=== PATIENT | female | born 1950 | race Caucasian/White ===

== ENCOUNTER 2020-03-14 10:30 | Outpatient (REF) | payer MEDICARE, SELFPAY ==
--- NOTE | 2020-03-14 | MM_ITS ---
EXAMINATION: MM SCREENING DIGITAL BREAST TOMOSYNTHESIS, BILATERAL CLINICAL INFORMATION: Screening. Asymptomatic. The lifetime risk of breast cancer based on the Tyrer-Cuzick Model is 3.7%. COMPARISON: Mammography: March 12, 2019 and studies dating back to August 22, 2014 TECHNIQUE: Digital breast tomosynthesis is performed in both the craniocaudal and mediolateral oblique views along with computer-aided detection (CAD). Synthesized 2D images are generated from the tomosynthesis. FINDINGS: The breasts are almost entirely fatty (ACR BI-RADS breast composition Category a). There are no significant masses, abnormal calcifications, or other abnormalities. Right-sided ventriculoperitoneal shunt evident. MM/MM tomosynthesis screening BI IMPRESSION: There are no significant changes from prior study. ASSESSMENT: BI-RADS 1: Negative RECOMMENDATION: Routine annual mammography screening. This patient's information was entered into a reminder system with a target due date for their next mammogram.
== END 2020-03-14 10:31 | disposition home or self-care (01) ==
LOC: HO.MAMMO 10:30
PROVIDERS: PCP Family Medicine; Visit Provider Family Medicine
DX: Z12.31 Encounter for screening mammogram for malignant neoplasm of breast (principal)
CPT/HCPCS: 77063; 77067

== ENCOUNTER 2020-04-11 07:49 | Outpatient (REF) | payer MEDICARE, SELFPAY ==
[2020-04-11 10:44] LABS: Estimated Average Glucose 108 mg/dL; Hemoglobin A1c % 5.4 %
[2020-04-11 11:23] LABS: Alanine Aminotransferase 25 U/L (0-31); Anion Gap 14 (12-20); Blood Urea Nitrogen 15 mg/dL (9-16); Carbon Dioxide 29 mmol/L (22-29); Chloride 107 mmol/L (96-108); Cholesterol 129 mg/dL; Estimated Glomerular Filt Rate > 60; Glucose Fasting 116 mg/dL (60-99); HDL Cholesterol 42 mg/dL; LDL Cholesterol Calculated 62 mg/dl; Sodium 145 mmol/L (135-145); Triglycerides 125 mg/dL
== END 2020-04-11 07:50 | disposition home or self-care (01) ==
LOC: HO.10HDL 07:49
PROVIDERS: Visit Provider Family Medicine
DX: R73.9 Hyperglycemia, unspecified (principal); I10 Essential (primary) hypertension; E78.00 Pure hypercholesterolemia, unspecified
CPT/HCPCS: 80051; 80061; 82550; 82565; 82947; 83036; 84460; 84520

== ENCOUNTER 2020-12-17 07:51 | Outpatient (REF) | payer MEDICARE, SELFPAY ==
[2020-12-17 11:15] LABS: Alanine Aminotransferase 31 U/L (0-31); Anion Gap 13 (12-20); Blood Urea Nitrogen 8 mg/dL (9-16); Carbon Dioxide 26 mmol/L (22-29); Chloride 109 mmol/L (96-108); Estimated Glomerular Filt Rate > 60; Potassium 4.6 mmol/L (3.3-5.1); Sodium 143 mmol/L (135-145)
== END 2020-12-17 07:52 | disposition home or self-care (01) ==
LOC: HO.10HDL 07:51
PROVIDERS: PCP Family Medicine; Visit Provider Family Medicine
DX: I10 Essential (primary) hypertension (principal); E78.00 Pure hypercholesterolemia, unspecified; Z79.899 Other long term (current) drug therapy
CPT/HCPCS: 36415; 80051; 82550; 82565; 84460; 84520

== ENCOUNTER 2021-04-19 07:44 | Outpatient (REF) | payer MEDICARE, SELFPAY ==
--- NOTE | ~2021-04-19 | MM_ITS ---
EXAMINATION: MM SCREENING DIGITAL BREAST TOMOSYNTHESIS, BILATERAL CLINICAL INFORMATION: Screening. Asymptomatic. The lifetime risk of breast cancer based on the Tyrer-Cuzick Model is 4%. COMPARISON: Mammography: 03/14/2020, 03/12/2019, 02/16/2018 TECHNIQUE: Digital breast tomosynthesis is performed in both the craniocaudal and mediolateral oblique views along with computer-aided detection (CAD). Synthesized 2D images are generated from the tomosynthesis. FINDINGS: There are scattered areas of fibroglandular density (ACR BI-RADS breast composition Category b). There are no significant masses, abnormal calcifications, or other abnormalities. Ventriculoperitoneal shunt tubing is again noted overlying the posterior medial right breast. MM/MM tomosynthesis screening BI IMPRESSION: No mammographic evidence of malignancy. ASSESSMENT: BI-RADS 2: Benign RECOMMENDATION: Routine annual mammography screening. This patient's information was entered into a reminder system with a target due date for their next mammogram.
== END 2021-04-19 07:45 | disposition home or self-care (01) ==
LOC: HO.MAMMO 07:44
PROVIDERS: Visit Provider Family Medicine
DX: Z12.31 Encounter for screening mammogram for malignant neoplasm of breast (principal)
CPT/HCPCS: 77063; 77067

== ENCOUNTER 2021-06-11 11:19 | Outpatient (REF) | payer MEDICARE, SELFPAY ==
--- NOTE | ~2021-06-11 | XR_ITS ---
EXAMINATION: XR HIP, RIGHT CLINICAL INFORMATION: Pain COMPARISON: None TECHNIQUE: AP view the pelvis and 2 views of the right hip. FINDINGS: No acute fracture or dislocation. Pelvic ring intact. Mild bilateral sacroiliac arthrosis. Moderate right and mild left hip joint space narrowing. There are bilateral acetabular femoral collar marginal osteophytes, associated with slight lateral uncovering of the right femoral head. Femoral heads remain spherical. Soft tissues unremarkable. XR/XR hip RT w PEL1V IMPRESSION: No acute findings. Moderate right and mild left hip arthrosis as described.
== END 2021-06-11 11:20 | disposition home or self-care (01) ==
LOC: HO.HMGCX 11:19
PROVIDERS: Visit Provider Internal Medicine
DX: G89.29 Other chronic pain (principal); M25.551 Pain in right hip
CPT/HCPCS: 73502

== ENCOUNTER 2021-07-26 09:00 | Outpatient (RCR) | payer MEDICARE, SELFPAY ==
--- NOTE | 2021-07-10 09:54 | MHC.PT.EP ---
[facility] [place] Office [place] Office [place] Office [address] [place] [address] [phone] F: [phone] F: [phone] F: [phone] F: [phone] Physical Therapy Plan of Care Date of Evaluation: Date of Surgery: Diagnosis: This is a 70 yo female presenting to skilled PT with a script for chronic pain in R groin. Assessment: This is a 70 yo female presenting to skilled PT with a script for chronic pain in R groin. Patient is here today complaining of pain in her right hip joint that started in the summer (when she felt a pull). This improved some until when she was standing and had an increased pulling incident that was sharp in nature. She now reports ongoing pain that is lingering since then. She has noticed a locking sensation with getting out of car and pain increases throughout the day. The patient reports that pain starts in the R hip (ASIS), radiates to right inguinal area but can radiate down the anterior aspect of the leg to the marc at times as well. Pain is described as pulling and sharp in the groin and just hurts in the leg (this is getting better however). Pain is worse with ambulation, climbing stairs and standing. She has tried taking [id number] NSAIDs, Tylenol, massaging area with [id number] arthritis cream and the heating pad. No referral to the ortho has been made just yet. 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 She is currently ambulating with a straight cane for safety but was on a walker. Able to walk without the cane but prefers not to. Assessment reveals pain that ranges up to a 10/10. She demos decreased/poor ROM, decreased hip and core strength, impaired gait pattern with need for AD, impaired joint mobility in knees and hips as well as gross functional decline with standing, walking and stairs. She is a good candidate for skilled PT 2x/wk for 5wks. Frequency and Duration: The patient will be seen 2x/wk for 5wks Short Term Goals: I in HEP Perform reciprocal gait on stairs with AD and single rail Demo proper squatting techniques without cues or increase in pain Custodial Goals: Demos functional ROM and strength Improve LEFs by at least 10 points Improve pain at the worst to no more than 2/10 Demo proper lifting techniques without increase in pain or radiating symptoms Treatment Plan: Modalities to reduce pain, spasms and effusion. Manual therapy to restore motion and function. Therapeutic exercise to improve strength and flexibility. Neuromuscular re-education for posture and balance. Therapeutic activities to return to functional activities of daily living. Electronically signed by: Daysi Hernandez PT Please sign and return to therapist. Thank you for your referral.
--- NOTE | 2021-08-02 08:44 | MHC.PT.PR ---
[facility] [place] Office [place] Office [place] Office [address] [place] [address] [phone] F: [phone] F: [phone] F: [phone] F: [phone] Physical Therapy Progress Note Diagnosis: This is a 70 yo female presenting to skilled PT with a script for chronic pain in R groin. Date of Surgery: Date of Evaluation: 07/10/21 Treatments to Date: 5 Cancellations to Date: 0 No Shows to Date: 0 Subjective: Myra called the office and cancelled the last 2 visits, her leg symptoms are making it hard for her to take more than a few steps. Pain Score and Location: 6-02/17 R ASIS, R groin Objective Measures: Please see eval Assessment: Myra's gait pattern is about the same, she continues to ambulate with her straight cane in front of her. She wants to get better but has been demonstrating little improvements with conservative PT at this time (she is very compliant in her HEP at home and is motivated to get better however pain is not improving). At this point in her therapy process I believe she may need a referral back to her PCP to assess her symptoms and refer out to an orthopedic surgeon for assessment and/or further imaging. Patient is in agreement. Patient to hold therapy for now, I will keep her chart open for 30 days from last tx session. PT Plan: Hold PT Frequency and Duration: The patient will be seen 2x/wk for 5wks Treatment Plan: Therapeutic Exercise Dynamic Therapeutic Activities Neuromuscular Re-ed Manual Therapies Taping Home Exercise Program Patient Education Hot or Cold Pack Reviewed/ Agreed with Student Documentation: Therapist: Thank you once again for your referral.
--- NOTE | 2021-08-23 10:15 | MHC.PT.DC ---
[facility] [place] Office [place] Office [place] Office [address] [place] 140 [facility] [phone] F: [phone] F: [phone] F: [phone] F: [phone] Physical Therapy Discharge Report Diagnosis: This is a 70 yo female presenting to skilled PT with a script for chronic pain in R groin. Date of Surgery: Date of Evaluation: 07/10/21 Date of Discharge: 08/23/21 Treatments to Date: 5 Cancellations to Date: 0 No Shows to Date: 0 Discharge Status: Recommend MD Follow-up Discharge Summary: At the last tx session, deon's gait pattern is about the same, she continues to ambulate with her straight cane in front of her as well. She wants to get better but has been demonstrating little improvements with conservative PT at this time (she is very compliant in her HEP at home and is motivated to get better however pain is not improving). At this point in her therapy process I believe she may need a referral back to her PCP to assess her symptoms and refer out to an orthopedic surgeon for assessment and/or further imaging (per most recent ortho note she will be undergoing surgery). Patient was in agreement with PT POC. I did keep her chart open for 30 days prior to DC. Electronically signed by: Daysi Hernandez PT Please sign and return to therapist. Thank you for your referral.
== END 2021-08-23 10:16 | disposition home or self-care (01) ==
LOC: HO.PTCHIC 09:00
PROVIDERS: PCP Internal Medicine; Visit Provider Internal Medicine
DX: R10.31 Right lower quadrant pain (principal); G89.29 Other chronic pain
CPT/HCPCS: 97110; 97140; 97162

== ENCOUNTER 2021-08-15 06:48 | Outpatient (REF) | payer MEDICARE, SELFPAY ==
--- NOTE | ~2021-08-15 | XR_ITS ---
EXAMINATION: XR HIP, RIGHT CLINICAL INFORMATION: Pain right hip COMPARISON: Radiographs right hip 06/11/2021 TECHNIQUE: Two views of the right hip. FINDINGS: No fracture, dislocation, destructive process. There are again moderate osteoarthritic changes right hip with superior hip joint narrowing and osteophytes and subchondral cyst superior acetabulum, 0.9 cm. There is no erosive change. Small spur present caudal aspect greater trochanter. The right SI joint is unremarkable. Pubic shows no diastases. XR/XR hip RT min 2V IMPRESSION: Osteoarthritis right hip.
== END 2021-08-15 06:49 | disposition home or self-care (01) ==
LOC: HO.HOSX 06:48
PROVIDERS: Visit Provider Physician Assistant
DX: M16.0 Bilateral primary osteoarthritis of hip (principal)
CPT/HCPCS: 73502; 99202

== ENCOUNTER → 2021-10-02 09:53 | Outpatient (BNVA) | payer MEDICARE, SELFPAY | PROVIDERS: PCP Internal Medicine; Visit Provider Orthopaedic Surgery | DX: Z13.89 Encounter for screening for other disorder (principal) ==

== ENCOUNTER → 2021-10-24 14:33 | Outpatient (REF) | payer MEDICARE, SELFPAY ==
--- NOTE | 2021-10-24 14:37 | CA_ITS ---
Transthoracic Echocardiogram Patient (Last, First, Middle): Myra Sandoval M Gender: Female Date of : 1950 Age: 70 Procedure Date: 10/24/2021 Procedure Type: Transthoracic Echocardiogram Location: OP Height: 167.64 cm Weight: 102.97 kg BSA: 2.11 m2 Heart Rate: bpm BP: 120 / 70 mmHg Resource Center Teacher: YR/TO Referring MD: Bi Ferrera MD Adobe Ball Mixer: Sony Ariza MD Symptoms: I42.9 CARDIOMYOPATHY Study Quality: Fair ECG Rhythm: Sinus Conclusions: - 1. Normal LV systolic function and diastolic filling pattern 2. Normal cardiac valvular Dopplers 3. Normal RV systolic pressure 4. No gross pericardial effusion Findings Left Ventricle Normal left ventricular size, thickness, and systolic function. The visually estimated ejection fraction is between 55-60%. Spectral Doppler is indicative of a normal filling pattern. Right Ventricle Normal right ventricular cavity size and systolic function. Atria The left atrium is normal in size. There is lipomatous hypertrophy of the interatrial septum. Interatrial shunt cannot be excluded. The right atrium is normal in size. Aortic Valve The aortic valve was not well visualized. There is no aortic valve stenosis. There is no aortic valve regurgitation. Mitral Valve There is moderate anterior and mild posterior mitral leaflet thickening. There is trace mitral valve regurgitation. There is no mitral valve stenosis. Pulmonic Valve The pulmonic valve was not well visualized. Tricuspid Valve Likely normal tricuspid valve structure and function. There is trace tricuspid valve regurgitation. The right ventricular systolic pressure is normal. The right ventricular systolic pressure is 28 mmHg. Normal right atrial pressure. There is no evidence of pulmonary hypertension. Great Vessels All visible segments of the aorta are normal in size. The pulmonary artery was not well visualized. Venous The inferior vena cava is normal in size and collapses greater than 50% with inspiration. Pericardium/Pleural There is no evidence of pericardial effusion. Prior Study Comparison No prior study available for comparison. Measurements 2D Linear Measurements IVSd: 1.12 0.6-0.9/0.6-1.0 cm LVIDd: 4.39 3.9-5.3/4.2-5.9 cm LVIDd Index: 2.08 2.4-3.2/2.2-3.1 cm/m2 LVIDs: 3.11 2.0-3.6 cm LVPWd: 1.14 0.7-1.1 cm LA Diam: 3.70 2.7-3.8/3.0-4.0 cm LAIDs Index: 1.75 1.5-2.3 cm/m2 LV Mass: 217.85 67-162/88-224 g LV Mass Index: 103.25 43-95/49-115 g/m2 LVOT Diam: 2.20 3.0+(-)1.3 cm 2D Systolic Function EF 4C: 53.00 >55% EF 2C: 60.30 >55% EF BiP: 56.00 >55% Mitral Valve MV VTI: 0.32 MV Pk Parmjit: 1.15 MV Mn Parmjit: 0.66 MV Pk Grad: 5.00 MV Mn Grad: 2.00 MV Pk E: 0.80 MV PK A: 0.72 MV Decel Time: 250.00 E/A: 1.10 E'Lateral: 5.87 E'Medial: 6.85 E/E' Med: 11.60 E/E' Lat: 13.60 PHT: 73.00 MVA PHT: 3.01 MVA Continuity: 2.38 Decel [place]: 3.19 Aortic Valve AoV Pk Parmjit: 1.25 AoV Mn Parmjit: 0.86 AoV VTI: 0.25 AoV Pk Grad: 6.00 Aov Mn Grad: 3.00 LILY Cont.VTI: 3.11 LVOT LVOT Pk Parmjit: 0.88 LVOT Mn Parmjit: 0.62 LVOT VTI: 0.20 LVOT Pk Grad: 3.00 LVOT Mn Grad: 2.00 LVOT Diam: 2.20 LVOT Area: 3.80 Diastolic Function MV Pk E: 0.80 MV Pk A: 0.72 E/A: 1.10 E'Medial: 6.85 E/E' Med: 11.60 E' Laterial: 5.87 E/E' Lat: 13.60 Right Ventricle TAPSE (mm): 18.70 TVS' Parmjit: 16.40 Tricuspid Valve TR Pk Parmjit: 2.50 TR Pk Grad: 25.00 RA Press: 3.00 RVSP: 28.00 Great Vessels Aorta Sinus of Valsalva: 3.18 2.0-3.[address] [place]: 2.81 1.7-3.4 cm Ao Asc: 3.50 2.1-3.4 cm Ao Arch: 2.70 Updated in Other Vendor System with Status of Final Sony Ariza MD electronically signed on 10/25/2021 8:57:42 AM with status of Final
== END ==
LOC: HO.CARD 14:33
PROVIDERS: PCP Internal Medicine; Visit Provider Internal Medicine Cardiovascular Disease
DX: I42.9 Cardiomyopathy, unspecified (principal)
CPT/HCPCS: 93306

== ENCOUNTER 2021-11-05 11:46 | Inpatient (IN) | payer MEDICARE, SELFPAY ==
[2021-10-23 12:10] VITALS: BP 130/63; PULSE 70; RESP 16; O2SAT 96; BMI 36.6
[2021-10-23 13:10] LABS: MANUAL DIFF FLAG NO
[2021-10-23 13:53] LABS: Basophils Percent Auto 0.6 % (0-2); Eosinophils Absolute Auto 0.1 X10*3/uL (0.0-0.4); Eosinophils Percent Auto 1.8 % (0-4); Hematocrit 38.9 % (37.0-47.0); Hemoglobin 12.5 g/dl (12.0-16.0); Imm Gran Abs Auto 0.02 X10*3/uL (0.00-0.03); Imm Gran Pct Auto 0.3 % (0.0-0.4); Lymphocytes Absolute Auto 2.1 X10*3/uL (1.2-4.9); Lymphocytes Percent Auto 29.2 % (20-40); Mean Corpuscular HGB Conc 32.1 g/dl (31.0-35.0); Mean Corpuscular Hemoglobin 29.6 pg (27.0-33.0); Mean Corpuscular Volume 92.2 fL (80.0-98.0); Mean Platelet Volume 11.4 fL (9.4-12.3); Monocytes Absolute Auto 0.6 X10*3/uL (0.1-1.2); Monocytes Percent Auto 8.9 % (2-11); Neutrophils Absolute Auto 4.2 x10*3/uL (2.0-8.3); Neutrophils Percent Auto 59.2 % (45-73); Platelet Count 174 X10*3/uL (160-400); Red Blood Count 4.22 X10*6/uL (4.20-5.50); Red Cell Distribution Width 12.4 % (11.0-16.0); White Blood Count 7.1 X10*3/uL (4.8-10.8)
[2021-10-23 14:07] LABS: MRSA Nasal PCR NEGATIVE (Negative); SA Nasal PCR NEGATIVE (Negative)
[2021-10-23 14:21] LABS: Anion Gap 12 (12-20); Blood Urea Nitrogen 14 mg/dL (9-16); Calcium 9.3 mg/dL (8.4-10.2); Carbon Dioxide 27 mmol/L (22-29); Chloride 107 mmol/L (96-108); Creatinine Clr Calc Pharmacy 70.1; Estimated Glomerular Filt Rate 60; Glucose Random 98 mg/dL (60-115); Potassium 4.6 mmol/L (3.3-5.1); Sodium 141 mmol/L (135-145)
--- NOTE | 2021-11-04 13:16 | P.CONAN_ITS ---
Documented by User: Ethel Mcaculey NP 11/04/21 13:19 HPI - Anesthesia Eval Consult details Narrative: 70yo F for Right Hip Total Replacement Cardiac cleared Seen in PAT by Dr Patrick GALLAGHER Active Problems Active Problems: All Active Problems (Updated 10/29/21 @ 13:19 by Katelyn Yap MD) MARIA DE JESUS on CPAP (Acute) Hx of non-ST elevation myocardial infarction (NSTEMI) (Acute) Chronic pain of right groin (Acute) Essential hypertension (Acute) Dyslipidemia (Acute) Osteoarthritis, hip, bilateral (Acute) Past Medical History Medical History (Updated 11/05/21 @ 15:00 by Katelyn Yap MD) Dyslipidemia Essential hypertension History of CVA (cerebrovascular accident) Hx of non-ST elevation myocardial infarction (NSTEMI) Hx of transient ischemic attack (TIA) MARIA DE JESUS on CPAP Osteoarthritis, hip, bilateral Stress-induced cardiomyopathy Vestibular schwannoma Family History Family History Father Substance use disorder Son Substance use disorder Paternal Aunt Mental health disorder Surgical History Surgical History Hx of bilateral cataract extraction Hx of breast surgery Hx of cardiac catheterization Hx of colonoscopy Hx of ovarian cystectomy S/P LASIK surgery 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 If so, by whom?: No Spiritual Healthcare Practices: no Jehovah'S Witness Healthcare Practices: no Cultural Healthcare Practices: no Are you DNR?: No Advance Directives: No (will bring dos) Advance Directives Information Provided: Yes Advance Directives on File: No Recently lost weight without trying: No Nutrition Risks: No Nutritional Risk service: No Current occupational status: retired Cognitive needs: No Hearing needs: No Vision needs: No Meds Allergies Allergy/AdvReac Type Severity Reaction Status Date / Time No Known Allergies Allergy Unknown Verified 11/05/21 12:22 Home Medications Medication Instructions Recorded Confirmed Last Taken Type aspirin 81 mg tablet,delayed 81 mg PO DAILY 06/11/21 10/23/21 11/04/21 History release (Adult Low Dose Aspirin) cholecalciferol (vitamin D3) 50 50 mcg PO DAILY 06/11/21 10/23/21 Unknown History mcg (2,000 unit) capsule coenzyme Q10 100 mg capsule (Co 100 mg PO DAILY 06/11/21 11/05/21 Unknown History Q-10) hydralazine 25 mg tablet 25 mg PO BID 06/11/21 11/05/21 Unknown History losartan 100 mg tablet 100 mg PO DAILY 06/11/21 10/23/21 Unknown History metoprolol tartrate 50 mg tablet 50 mg PO BID 06/11/21 10/23/21 11/05/21 History magnesium 200 mg tablet 400 mg PO BEDTIME 10/22/21 11/05/21 Unknown History multivitamin 1 tab PO DAILY 10/23/21 11/05/21 Unknown History rosuvastatin 20 mg tablet 1 tab PO BEDTIME 11/05/21 11/05/21 Unknown History Exam Exam Date and Time: November 04, 2021 1316 Height,Weight and Vital Signs: Height 5 ft 6 in Weight 102.965 kg Last Vital Signs Pulse 70 10/23/21 12:10 Resp 16 10/23/21 12:10 BP 130/63 10/23/21 12:10 Pulse Ox 96 10/23/21 12:10 O2 Del Method 10/23/21 12:10 Pertinent Lab Results Pertinent Lab Results: Laboratory Tests 10/23/21 10/23/21 10/23/21 12:30 13:00 13:09 WBC 7.1 RBC 4.22 Hgb 12.5 Hct 38.9 MCV 92.2 MCH 29.6 MCHC 32.1 RDW 12.4 Plt Count 174 MPV 11.4 Immature Gran % (Auto) 0.3 Neut % (Auto) 59.2 Lymph % (Auto) 29.2 [place] % (Auto) 8.9 Eos % (Auto) 1.8 Baso % (Auto) 0.6 Lymph # (Auto) 2.1 [place] # (Auto) 0.6 Eos # (Auto) 0.1 Baso # (Auto) 0.0 Abs Immat Gran (auto) 0.02 Absolute Neuts (auto) 4.2 Absolute Nucleated RBC 0.000 Nucleated RBC % (auto) 0.0 Sodium Potassium Chloride Carbon Dioxide Anion Gap BUN Creatinine Estim Creat Clear Calc Estimated GFR Random Glucose Calcium Nasal Screen MRSA (PCR) NEGATIVE Nasal S. aureus Screen NEGATIVE Nasal MRSA/S.aureus Interp SEE NOTE Blood Type A Positive Antibody Screen NEGATIVE 10/23/21 13:09 WBC RBC Hgb Hct MCV MCH MCHC RDW Plt Count MPV Immature Gran % (Auto) Neut % (Auto) Lymph % (Auto) [place] % (Auto) Eos % (Auto) Baso % (Auto) Lymph # (Auto) [place] # (Auto) Eos # (Auto) Baso # (Auto) Abs Immat Gran (auto) Absolute Neuts (auto) Absolute Nucleated RBC Nucleated RBC % (auto) Sodium 141 Potassium 4.6 Chloride 107 Carbon Dioxide 27 Anion Gap 12 BUN 14 Creatinine 0.93 Estim Creat Clear Calc 70.1 Estimated GFR 60 Random Glucose 98 Calcium 9.3 Nasal Screen MRSA (PCR) Nasal S. aureus Screen Nasal MRSA/S.aureus Interp Blood Type Antibody Screen Narrative Narrative: ECHO 10/2021 Conclusions: - 1. Normal LV systolic? function and diastolic filling pattern? 2. Normal cardiac valvular Dopplers? 3. Normal RV systolic pressure ? 4. No gross pericardial effusion ?? EKG 09/2021 SR @ 61 Assessment and Plan Assessment Anesthesia Assessment: Chart Reviewed Documented by User: Dane Holcomb MD 11/05/21 18:50 HPI - Anesthesia Eval Consult details Narrative: 70yo F for Right Hip Total Replacement 2017 [place] normal pressure hydrcephalus s/p shunt Cardiac cleared Seen in PAT by Dr Patrick CURRY Past Medical History Medical History (Updated 11/05/21 @ 15:00 by Katelyn Yap MD) Dyslipidemia Essential hypertension History of CVA (cerebrovascular accident) Hx of non-ST elevation myocardial infarction (NSTEMI) Hx of transient ischemic attack (TIA) MARIA DE JESUS on CPAP Osteoarthritis, hip, bilateral Stress-induced cardiomyopathy Vestibular schwannoma Family History Family History Father Substance use disorder Son Substance use disorder Paternal Aunt Mental health disorder Family history of problems with anesthesia: No Surgical History Surgical History Hx of bilateral cataract extraction Hx of breast surgery Hx of cardiac catheterization Hx of colonoscopy Hx of ovarian cystectomy S/P LASIK surgery 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 If so, by whom?: No Spiritual Healthcare Practices: no Jehovah'S Witness Healthcare Practices: no Cultural Healthcare Practices: no Are you DNR?: No Advance Directives: No (will bring dos) Advance Directives Information Provided: Yes Advance Directives on File: No Recently lost weight without trying: No Nutrition Risks: No Nutritional Risk service: No Current occupational status: retired Cognitive needs: No Hearing needs: No Vision needs: No Meds Allergies Allergy/AdvReac Type Severity Reaction Status Date / Time No Known Allergies Allergy Unknown Verified 11/05/21 12:22 Home Medications Medication Instructions Recorded Confirmed Last Taken Type aspirin 81 mg tablet,delayed 81 mg PO DAILY 06/11/21 10/23/21 11/04/21 History release (Adult Low Dose Aspirin) cholecalciferol (vitamin D3) 50 50 mcg PO DAILY 06/11/21 10/23/21 Unknown History mcg (2,000 unit) capsule coenzyme Q10 100 mg capsule (Co 100 mg PO DAILY 06/11/21 11/05/21 Unknown History Q-10) hydralazine 25 mg tablet 25 mg PO BID 06/11/21 11/05/21 Unknown History losartan 100 mg tablet 100 mg PO DAILY 06/11/21 10/23/21 Unknown History metoprolol tartrate 50 mg tablet 50 mg PO BID 06/11/21 10/23/21 11/05/21 History magnesium 200 mg tablet 400 mg PO BEDTIME 10/22/21 11/05/21 Unknown History multivitamin 1 tab PO DAILY 10/23/21 11/05/21 Unknown History rosuvastatin 20 mg tablet 1 tab PO BEDTIME 11/05/21 11/05/21 Unknown History Exam Airway Mallampati Class: III TM Dist: >3cm Neck ROM: Full Denture: Upper and Lower Loose/Missing/Broken Teeth: Yes Heart: S1,S2 Lungs: b/l breath sounds Assessment and Plan Assessment Anesthesia Assessment: Anesthesia Plan Discussed Final Anesthetic Review Family History of Problems with Anesthesia: No History of Problems with Anesthesia: No NPO: Yes ASA Class: III Final Preanesthetic Review: Meds/Allgs Chart Reviewed, Consent Obtained/Reviewed and Anes Risks/Benef Reviewed Patient Risk: Intermediate Procedure Risk: Intermediate Anesthetic Plan Anesthetic Plan: GA Disposition: Standard PACU
[2021-11-05] VITALS (10 sets, daily range): BP systolic 118–134; BP diastolic 61–74; PULSE 59–73; RESP 12–18; TEMP 36–36.7; O2SAT 96–100
--- NOTE | ~2021-11-05 | XR_ITS ---
EXAMINATION: XR PELVIS CLINICAL INFORMATION: Right total hip arthroplasty COMPARISON: 08/15/2021 TECHNIQUE: AP portable low set view of the pelvis. FINDINGS: There is a total right hip arthroplasty. The femoral head component articulates appropriately with the acetabular component. No periprosthetic lucency or fracture. Postoperative soft tissue gas. Mild degenerative change of the right hip with joint space narrowing. The visualized pelvis is intact. XR/XR pelvis 1-2V IMPRESSION: Total right hip arthroplasty in typical positioning and alignment.
[2021-11-05] MEDS: oxyCODONE HCl ER 10 MG TAB.ER.12H PO ×2 (12:13→20:07)
[2021-11-05] MEDS: Lactated Ringers 1,000 ML 100 ML IVCONT ×3 (12:13→17:53)
[2021-11-05 12:36] LABS: Hematocrit 37.4 % (37.0-47.0); Hemoglobin 12.2 g/dl (12.0-16.0)
[2021-11-05 12:39] LABS: COVID-19 Test Negative (Negative)
--- NOTE | 2021-11-05 13:35 | MHC.SHP ---
Pre-Procedural Eval Section A Date of Service: 11/05/21 The patient is an INPATIENT: No Changes since office visit: Yes Patient answered all questions; No Cold of Flu in the past 2 weeks, No New Medical Problems and No Changes in Medication The History & Physical has been completed within 30 days and I have reviewed it.: Yes Section B Chief Complaint: RTHA Allergies: Allergies Allergy/AdvReac Type Severity Reaction Status Date / Time No Known Allergies Allergy Unknown Verified 11/05/21 12:22 Plan I have reviewed the history and physical and performed a pertinent physical examination on my patient. No changes have occurred unless specified.
--- NOTE | 2021-11-05 14:27 | PHA.MEDREC ---
Pharmacy Consult ? Medication Reconciliation Pharmacy has completed the medication reconciliation. Reviewed med rec done by Jenna Alexander
--- NOTE | 2021-11-05 15:32 | PM.OP ---
Brief Operative Note Date of Service: 11/05/21 Pre-op diagnosis: Right hip OA Post-op diagnosis: same Procedure: Right ANÍBAL Implants: Raymundo Trident2 50 Accolade2 #9 132 deg +0 36 ceramic Surgeon: Sharath Farrell MD Anesthesia: GETA and local Was an Marketing Manager used for this Procedure?: Yes Marketing Manager: Amy Mckinney Estimated blood loss (mL): 200 IV fluids (mL): 850 Pathology: other Condition: stable Disposition: PACU
[2021-11-05] MEDS: ondansetron HCL 4 MG/2 ML VIAL IVPUSH (17:52)
[2021-11-05] MEDS: Acetaminophen 325 MG TABLET 650 MG PO (18:28)
[2021-11-05] MEDS: oxyCODONE HCl Immed Release 5 MG TABLET 10 MG PO ×2 (18:28→22:27)
[2021-11-05] MEDS: ceFAZolin Sodium/Dextrose,Iso 2 GM/50 ML PIGGYBACK IV (18:28)
[2021-11-05] MEDS: Metoprolol Tartrate 50 MG TABLET PO (20:06)
[2021-11-05] MEDS: Atorvastatin Calcium 80 MG TABLET PO (20:06)
[2021-11-05] MEDS: Celecoxib 200 MG CAPSULE PO (20:06)
[2021-11-05] MEDS: Docusate Sodium 100 MG CAPSULE PO (20:06)
[2021-11-05] MEDS: hydrALAZINE HCl 25 MG TABLET PO (20:06)
[2021-11-05] MEDS: Magnesium Oxide 400 MG TABLET PO (20:06)
[2021-11-05] MEDS: 0.9 % Sodium Chloride Flush 3 ML SYRINGE IVFLUSH (20:07)
[2021-11-06] VITALS (9 sets, daily range): BP systolic 95–116; BP diastolic 50–62; PULSE 79–97; RESP 16–18; TEMP 36.2–37.7; O2SAT 94–100
[2021-11-06] MEDS: oxyCODONE HCl Immed Release 5 MG TABLET 10 MG PO (02:40)
[2021-11-06] MEDS: Lactated Ringers 1,000 ML 100 ML IVCONT ×3 (05:16→21:41)
[2021-11-06 06:18] LABS: MANUAL DIFF FLAG NO
[2021-11-06 06:24] LABS: Basophils Percent Auto 0.2 % (0-2); Hematocrit 28.3 % (37.0-47.0); Hemoglobin 9.3 g/dl (12.0-16.0); Imm Gran Abs Auto 0.05 X10*3/uL (0.00-0.03); Imm Gran Pct Auto 0.4 % (0.0-0.4); Lymphocytes Absolute Auto 1.3 X10*3/uL (1.2-4.9); Lymphocytes Percent Auto 10.3 % (20-40); Mean Corpuscular HGB Conc 32.9 g/dl (31.0-35.0); Mean Corpuscular Hemoglobin 30.2 pg (27.0-33.0); Mean Corpuscular Volume 91.9 fL (80.0-98.0); Mean Platelet Volume 11.8 fL (9.4-12.3); Monocytes Absolute Auto 1.2 X10*3/uL (0.1-1.2); Monocytes Percent Auto 9.2 % (2-11); Neutrophils Percent Auto 79.9 % (45-73); Platelet Count 136 X10*3/uL (160-400); Red Blood Count 3.08 X10*6/uL (4.20-5.50); Red Cell Distribution Width 12.4 % (11.0-16.0); White Blood Count 12.5 X10*3/uL (4.8-10.8)
[2021-11-06 06:47] LABS: Anion Gap 13 (12-20); Blood Urea Nitrogen 13 mg/dL (9-16); Calcium 8.1 mg/dL (8.4-10.2); Carbon Dioxide 24 mmol/L (22-29); Chloride 105 mmol/L (96-108); Creatinine Clr Calc Pharmacy 70.1; Estimated Glomerular Filt Rate 60; Glucose Fasting 134 mg/dL (60-99); Potassium 4.9 mmol/L (3.3-5.1); Sodium 137 mmol/L (135-145)
[2021-11-06] MEDS: 0.9 % Sodium Chloride Flush 3 ML SYRINGE IVFLUSH (08:25)
[2021-11-06] MEDS: Celecoxib 200 MG CAPSULE PO ×2 (08:26→20:58)
[2021-11-06] MEDS: HYDROmorphone HCl 0.5 MG/0.5 ML SYRINGE 0.25 MG IVPUSH (08:26)
[2021-11-06] MEDS: Cholecalciferol (Vitamin D3) 25 MCG TABLET 50 MCG PO (08:27)
[2021-11-06] MEDS: Docusate Sodium 100 MG CAPSULE PO ×2 (08:27→20:58)
[2021-11-06] MEDS: Multivitamin TABLET 1 TAB PO (08:27)
[2021-11-06] MEDS: oxyCODONE HCl ER 10 MG TAB.ER.12H PO (08:28)
--- NOTE | 2021-11-06 10:15 | PM.PNORT ---
Subjective Subjective Date of Service: 11/06/21 Interval history: postop day 1 status post right total hip arthroplasty. Patient is doing overall very well. Pain is well managed. No overnight events. No additional complaints. Physical Exam Vital Signs: Vital Signs: Last Vital Signs Temp 98.8 F 11/06/21 07:37 Pulse 82 11/06/21 09:22 Resp 18 11/06/21 07:37 BP 95/53 L 11/06/21 09:22 Pulse Ox 96 11/06/21 09:22 O2 Del Method 11/06/21 07:37 O2 Flow Rate 3 11/06/21 00:00 BMI result Body Mass Index 36.6 Const: General: cooperative, healthy appearing and no acute distress Resp: Effort & Inspection: normal respiratory effort and able to speak in complete sentences Cardio: Rate: regular rate Peripheral pulses: Peripheral pulses 2+ throughout GI: Palpation (GI): Soft to palpation Skin: Lesions: no lesions Rashes: no rashes Extrem: Other: Right hip Aquacel dressing is clean dry and intact. Patient is able to dorsiflex and plantar flex. Sensation intact. Pedal pulse intact. Procedures Date of Service Date of Service: 11/06/21 Progress Note: A&P Assessment and plan (1) Status post total hip replacement, right: Status: Acute Assessment and Plan: Continue pain mgmnt Begin Lovenox for dvt ppx - past medical history significant for stroke and NSTEMI begin PT for right total hip arthroplasty Dispo planning-Pending PT eval, pain mgmnt Time Spent With Patient Time: Total time spent is greater than 50% in coordination of care (as documented) at patient's floor/unit and/or counseling patient: Quality Stroke Does the patient have a stroke diagnosis?: No VTE Prior VTE?: No VTE Risk Level:: Medical - moderate - high VTE Device Contraindication: N/A - Device Ordered VTE Drug Contraindication: N/A - Med Ordered
--- NOTE | 2021-11-06 10:18 | HO.PM.IMCN ---
History of Present Illness Data of Consult Service Date: 11/06/21 Primary Care Provider: Katelyn Yap MD HPI Reason for consult: routine medical management This is a 70 yo F with a PMH as outlined below who is admitted under the orthopedic services post R ANÍBAL. Medical consult requested for routine medical mgmt. Pt seen and examined this AM. She reports no complaints other than hip soreness. Her BP has been low and she denies dizziness currently. She did ambulate with PT. Review of Systems Review of Systems: negative except [facility] Medical History Dyslipidemia Essential hypertension History of CVA (cerebrovascular accident) Hx of non-ST elevation myocardial infarction (NSTEMI) Hx of transient ischemic attack (TIA) MARIA DE JESUS on CPAP Osteoarthritis, hip, bilateral Stress-induced cardiomyopathy Vestibular schwannoma Family History Father Substance use disorder Son Substance use disorder Paternal Aunt Mental health disorder Surgical History Hx of bilateral cataract extraction Hx of breast surgery Hx of cardiac catheterization Hx of colonoscopy Hx of ovarian cystectomy S/P LASIK surgery S/P [employer] shunt Social History Household Members Other:: [facility] Housing: House Are you a primary care transition coordinator to a significant other at home: No Do you presently have visiting nurse or other home services: No Patient Tobacco Use Status: Former Tobacco user Quit Date: ~2004 Tobacco use type: Cigarette e-Cigarette/Vaping Use: Never Used Currently Displaying Signs/Symptoms of Drug Intoxication Withdrawal: No Have you been hit, kicked, punched, or otherwise hurt by someone within the past year? If so, by whom?: No Spiritual Healthcare Practices: no [facility] Practices: no Cultural Healthcare Practices: no Are you DNR?: No Advance Directives: No (will bring dos) Advance Directives Information Provided: Yes Advance Directives on File: No Recently lost weight without trying: No Nutrition Risks: No Nutritional Risk service: No Current occupational status: retired Cognitive needs: No Hearing needs: No Vision needs: No Meds Allergies Allergy/AdvReac Type Severity Reaction Status Date / Time No Known Allergies Allergy Unknown Verified 11/05/21 12:22 Active Medications: Current Medications Acetaminophen (Acetaminophen 325 Mg Tablet) 650 mg PO Q6H PRN PRN Reason: Pain, Mild (Pain Scale 1-3) Last Admin: 11/05/21 18:28 Dose: 650 mg Atorvastatin Calcium (Atorvastatin Calcium 80 Mg Tablet) 80 mg PO BEDTIME [facility] Last Admin: 11/05/21 20:06 Dose: 80 mg Celecoxib (Celecoxib 200 Mg Capsule) 200 mg PO BID [facility] Last Admin: 11/06/21 08:26 Dose: 200 mg Docusate Sodium (Docusate Sodium 100 Mg Capsule) 100 mg PO BID [facility] Last Admin: 11/06/21 08:27 Dose: 100 mg Enoxaparin Sodium (Enoxaparin Sodium 40 Mg/0.4 Ml Syringe) 40 mg SUBCUT Q24H [facility] Hydralazine HCl (Hydralazine Hcl 25 Mg Tablet) 25 mg PO BID [facility]; Protocol Last Admin: 11/06/21 09:45 Dose: Not Given Hydromorphone HCl (Hydromorphone Hcl 0.5 Mg/0.5 Ml Syringe) 0.25 mg IVPUSH Q4H PRN; Protocol PRN Reason: Pain, Severe (Pain Scale 7-10) Last Admin: 11/06/21 08:26 Dose: 0.25 mg Lactated Ringer's (Lr) 1,000 mls @ 100 mls/hr IVCONT .Q10H [facility] Last Admin: 11/06/21 05:16 Dose: 100 mls/hr Losartan Potassium (Losartan Potassium 50 Mg Tablet) 100 mg PO DAILY [facility]; Protocol Last Admin: 11/06/21 09:45 Dose: Not Given Magnesium Oxide (Magnesium Oxide 400 Mg Tablet) 400 mg PO BEDTIME [facility] Last Admin: 11/05/21 20:06 Dose: 400 mg Metoprolol Tartrate (Metoprolol Tartrate 50 Mg Tablet) 50 mg PO BID [facility]; Protocol Last Admin: 11/06/21 09:46 Dose: Not Given Multivitamins/Vitamin C (Multivitamin Tablet) 1 tab PO DAILY [facility] Last Admin: 11/06/21 08:27 Dose: 1 tab Ondansetron HCl (Ondansetron Hcl 4 Mg/2 Ml Vial) 4 mg IVPUSH Q8H PRN PRN Reason: Nausea and Vomiting Last Admin: 11/05/21 17:52 Dose: 4 mg Oxycodone HCl (Oxycodone Hcl Immed Release 5 Mg Tablet) 10 mg PO Q4H PRN PRN Reason: Pain, Moderate (Pain Scale 4-6 Last Admin: 11/06/21 02:40 Dose: 10 mg Oxycodone HCl (Oxycodone Hcl Er 10 Mg Tab.Er.12h) 10 mg PO BID [facility] Last Admin: 11/06/21 08:28 Dose: 10 mg Sodium Chloride (0.9 % Sodium Chloride Flush 3 Ml Syringe) 3 ml IVFLUSH QSHIFT [facility] Last Admin: 11/06/21 08:25 Dose: 3 ml Vitamin D (Cholecalciferol (Vitamin D3) 25 Mcg Tablet) 50 mcg PO DAILY [facility] Last Admin: 11/06/21 08:27 Dose: 50 mcg Home Medications Medication Instructions Recorded Confirmed Last Taken Type aspirin 81 mg tablet,delayed 81 mg PO DAILY 06/11/21 10/23/21 11/04/21 History release (Adult Low Dose Aspirin) cholecalciferol (vitamin D3) 50 50 mcg PO DAILY 06/11/21 10/23/21 Unknown History mcg (2,000 unit) capsule coenzyme Q10 100 mg capsule (Co 100 mg PO DAILY 06/11/21 11/05/21 Unknown History Q-10) hydralazine 25 mg tablet 25 mg PO BID 06/11/21 11/05/21 Unknown History losartan 100 mg tablet 100 mg PO DAILY 06/11/21 10/23/21 Unknown History metoprolol tartrate 50 mg tablet 50 mg PO BID 06/11/21 10/23/21 11/05/21 History magnesium 200 mg tablet 400 mg PO BEDTIME 10/22/21 11/05/21 Unknown History multivitamin 1 tab PO DAILY 10/23/21 11/05/21 Unknown History rosuvastatin 20 mg tablet 1 tab PO BEDTIME 11/05/21 11/05/21 Unknown History Physical Exam Vital Signs and Narrative: Vital Signs: Last Vital Signs Temp 98.8 F 11/06/21 07:37 Pulse 82 11/06/21 09:22 Resp 18 11/06/21 07:37 BP 95/53 L 11/06/21 09:22 Pulse Ox 96 11/06/21 09:22 O2 Del Method 11/06/21 07:37 O2 Flow Rate 3 11/06/21 00:00 BMI result Body Mass Index 36.6 Const: Other: General - no acute distress, appears comfortable Cardiovascular - regular rate and rhythm, S1-S2 Lungs - normal respiratory effort, clear to auscultation bilaterally, no wheezing Abdomen - soft, nontender, no rebound or guarding Extremities - no edema bilaterally Neuro - awake and alert, no focal deficits Results Labs CBC and Chem 7: 11/06/21 05:44 11/06/21 05:44 Labs: Laboratory Results - last 24 hr 11/05/21 11/06/21 11/06/21 11:45 05:44 05:44 MCV 91.9 MCH 30.2 MCHC 32.9 RDW 12.4 Plt Count 136 L MPV 11.8 Immature Gran % (Auto) 0.4 Neut % (Auto) 79.9 H Lymph % (Auto) 10.3 L [place] % (Auto) 9.2 Eos % (Auto) 0.0 Baso % (Auto) 0.2 Lymph # (Auto) 1.3 [place] # (Auto) 1.2 Eos # (Auto) 0.0 Baso # (Auto) 0.0 Abs Immat Gran (auto) 0.05 H Absolute Neuts (auto) 10.0 H Absolute Nucleated RBC 0.000 Nucleated RBC % (auto) 0.0 Anion Gap 13 Estim Creat Clear Calc 70.1 Estimated GFR 60 Fasting Glucose 134 H Calcium 8.1 L D COVID-19 (ZOYA) Negative COVID-19 Clin Com See Note Imaging Radiologist's Impressions: Impressions Pelvis X-Ray 11/05/21 15:34 IMPRESSION: Total right hip arthroplasty in typical positioning and alignment. Assessment and Plan (1) Hypotension: Status: Acute Plan 70 yo F with a PMH of HTN, HLD, CAD, MARIA DE JESUS on cpap, stress-incuded CMP, prior TIA who is admitted post R ANÍBAL. Medical consult requested for routine medical H&P. 1. Hypotension has history of HTN BP in the 90s this AM -- likely due to anemia (h/h dropped from 12/37 to 9.3/28.3 this AM). continue LR @ 100 cc hr BP meds on hold trend CBC (h/h ordered now) and consider transfusion below 8 given her history of CAD. 2. History of CAD continue statin/aspirin BB on hold due to #1; will restart once BP stable 3. HLD statin 4. R ANÍBAL mgmt per ortho Will follow along with you.
[2021-11-06 11:01] LABS: Hematocrit 28.9 % (37.0-47.0); Hemoglobin 9.5 g/dl (12.0-16.0)
--- NOTE | 2021-11-06 13:56 | MHC.CM.PN ---
PATIENT LIVES WITH HER GRAND DAUGHTER SHE HAS A CPAP, WALKER, CANE, AND COMMODE IN THE HOME. PATIENT IS COVID VACCINATED X 4 WITH ALL MODERNA SERIES. 07/26/20 08/23/20 03/27/21 08/12/21 INFORMATION PLACED IN EXPANSE. HCP IS DAUGHTER JOSEFINA AND A COPY IS REQUESTED. [facility] ON FILE [facility] FOR HOME P.T. NEEDS. IMM 11/06 IN CHART
[2021-11-06] MEDS: Acetaminophen 325 MG TABLET 650 MG PO (14:26)
[2021-11-06] MEDS: Enoxaparin Sodium 40 MG/0.4 ML SYRINGE SUBCUT (14:26)
--- NOTE | 2021-11-06 18:45 | HO.POSTANES ---
Post Anesthesia Evaluation Post Anesthesia Evaluation Vital Signs: Vital Signs Temp Pulse Resp BP Pulse Ox O2 Del Method 11/06/21 15:05 98.4 F 81 18 114/60 95 Room Air 11/06/21 13:39 81 95/62 97 11/06/21 11:12 98.5 F 81 18 95/62 97 Room Air 11/06/21 09:22 82 95/53 L 96 11/06/21 07:37 98.8 F 82 18 95/53 L 96 Room Air Anesthesia: General Endotracheal-GETA Mental Status: Awake Pain Control: Satisfactory Nausea/Vomiting: None Hydration: Adequate Anesthesia-Related Issues: No Anes. Related Issues
[2021-11-06] MEDS: Magnesium Oxide 400 MG TABLET PO (20:58)
[2021-11-06] MEDS: Atorvastatin Calcium 80 MG TABLET PO (20:58)
[2021-11-07] VITALS (8 sets, daily range): BP systolic 93–142; BP diastolic 48–82; PULSE 82–97; RESP 17–20; TEMP 36.2–37.3; O2SAT 92–96
[2021-11-07 06:17] LABS: MANUAL DIFF FLAG NO
[2021-11-07 06:39] LABS: Basophils Percent Auto 0.5 % (0-2); Eosinophils Absolute Auto 0.1 X10*3/uL (0.0-0.4); Eosinophils Percent Auto 1.6 % (0-4); Hematocrit 24.4 % (37.0-47.0); Hemoglobin 8.1 g/dl (12.0-16.0); Imm Gran Abs Auto 0.03 X10*3/uL (0.00-0.03); Imm Gran Pct Auto 0.4 % (0.0-0.4); Lymphocytes Absolute Auto 1.3 X10*3/uL (1.2-4.9); Lymphocytes Percent Auto 16.2 % (20-40); Mean Corpuscular HGB Conc 33.2 g/dl (31.0-35.0); Mean Corpuscular Hemoglobin 30.8 pg (27.0-33.0); Mean Corpuscular Volume 92.8 fL (80.0-98.0); Mean Platelet Volume 12.3 fL (9.4-12.3); Monocytes Percent Auto 12.5 % (2-11); Neutrophils Absolute Auto 5.5 x10*3/uL (2.0-8.3); Neutrophils Percent Auto 68.8 % (45-73); Platelet Count 112 X10*3/uL (160-400); Red Blood Count 2.63 X10*6/uL (4.20-5.50); Red Cell Distribution Width 12.8 % (11.0-16.0); White Blood Count 7.9 X10*3/uL (4.8-10.8)
[2021-11-07 07:06] LABS: Anion Gap 10 (12-20); Blood Urea Nitrogen 15 mg/dL (9-16); Calcium 7.8 mg/dL (8.4-10.2); Carbon Dioxide 26 mmol/L (22-29); Chloride 104 mmol/L (96-108); Creatinine Clr Calc Pharmacy 70.9; Estimated Glomerular Filt Rate > 60; Glucose Fasting 126 mg/dL (60-99); Potassium 4.7 mmol/L (3.3-5.1); Sodium 135 mmol/L (135-145)
--- NOTE | 2021-11-07 07:18 | P.F2F_ITS ---
Service Date Service Date: 11/07/21 Encounter Date of encounter: 11/07/21 Reasons for Services Signs and symptoms assessed: Pt. is considered homebound due to recent surgery. Unable to drive, poor balance, poor gait mechanics. Reason for physical therapy: home safety and mobility, therapeutic exercises, restore joint function, gait/transfer training, assess need for DME and ADL training Reason for occupational therapy: home safety and mobility, therapeutic exercises, restore joint function, gait/transfer training, assess need for DME and ADL training Homebound: Leaving the home is medically contraindicated at this time without the asist of a device and/or another person due th the listed conditions above and below. Reason homebound: unsteady gait / fall risk, pain with ambulation, pain with transfers, poor balance / fall risk and unable to drive Certification: Based on the above findings, I certify that this patient is confined to the home and needs intermittent detention care, physical therapy and/or speech therapy, or continues to need occupational therapy. The patient is under my care, and I have initiated the establishment of the plan of care. The patient will be followed by a physician who will periodically review the plan of care.
[2021-11-07] MEDS: Acetaminophen 325 MG TABLET 650 MG PO (07:55)
[2021-11-07] MEDS: Cholecalciferol (Vitamin D3) 25 MCG TABLET 50 MCG PO (07:56)
[2021-11-07] MEDS: Multivitamin TABLET 1 TAB PO (07:56)
[2021-11-07] MEDS: Docusate Sodium 100 MG CAPSULE PO (07:56)
[2021-11-07] MEDS: Celecoxib 200 MG CAPSULE PO (07:56)
--- NOTE | 2021-11-07 08:23 | PM.DS ---
DS: Providers Provider Date of Service: 11/07/21 Date of admission: 11/05/21 11:46 Primary care physician: Katelyn Yap MD Consults: 11/05/21 17:02 Consult to Hospitalist Routine Consulting Provider: Hospitalist Reason For Exam: routine medical managment DS: Diagnosis Discharge Diagnosis (1) Hypotension: Status: Acute DS: Summary Hospital Course Hospital Course: The patient underwent a successful right total hip arthroplasty, they were transferred to PACU and then to the floor to recover. During their stay, their vitals were stable, afebrile at 97.5. Labs were unremarkable, H/H 8.1/24.4. POD 1 they were started on Lovenox injections for DVT ppx, they also received Physical Therapy services twice a day. Prior to discharge, their dressing was changed, incision clean dry and intact, new Aquacel dressing applied and the plan was to be discharged home with VNA services. Time Spent with Patient Time attestation: Total time spent providing and/or coordinating discharge services: Discharge coordination time: Less than 30 minutes Quality: Safe Use of Opioids Does Pt have an Active Cancer Diagnosis on the Problem List?: No Quality: Stroke Does the patient have a stroke diagnosis?: No Physical Exam Vital Signs: Vital Signs: Last Vital Signs Temp 98.1 F 11/07/21 07:37 Pulse 88 11/07/21 07:37 Resp 18 11/07/21 07:37 BP 96/51 L 11/07/21 07:37 Pulse Ox 94 11/07/21 04:00 O2 Del Method 11/06/21 23:54 O2 Flow Rate 3 11/06/21 00:00 BMI result Body Mass Index 36.6 DS: Data Data Completed and Pending Pending studies at discharge: Pending at discharge 11/05/21 15:07 Surgical [PTH] Routine Labs on day of discharge: Laboratory Results - last 24 hr 11/06/21 11/07/21 11/07/21 10:53 05:48 05:48 WBC 7.9 RBC 2.63 L Hgb 9.5 L 8.1 L Hct 28.9 L 24.4 L MCV 92.8 MCH 30.8 MCHC 33.2 RDW 12.8 Plt Count 112 L MPV 12.3 Immature Gran % (Auto) 0.4 Neut % (Auto) 68.8 Lymph % (Auto) 16.2 L [place] % (Auto) 12.5 H Eos % (Auto) 1.6 Baso % (Auto) 0.5 Lymph # (Auto) 1.3 [place] # (Auto) 1.0 Eos # (Auto) 0.1 Baso # (Auto) 0.0 Abs Immat Gran (auto) 0.03 Absolute Neuts (auto) 5.5 Absolute Nucleated RBC 0.000 Nucleated RBC % (auto) 0.0 Sodium 135 Potassium 4.7 Chloride 104 Carbon Dioxide 26 Anion Gap 10 L BUN 15 Creatinine 0.92 Estim Creat Clear Calc 70.9 Estimated GFR > 60 Fasting Glucose 126 H Calcium 7.8 L Discharge Plan Discharge Patient Disposition: Home, Self-Care Discharge Diagnosis: s/p RTHA Referrals: Sharath Farrell MD [Physician] - 11/21/21 1:30 pm Discharge Medications: New enoxaparin 40 mg/0.4 mL Syringe 40 mg subcut Q24H 42 Days Qty: 16.8 0RF acetaminophen 325 mg Tablet 650 mg PO Q6H PRN (Reason: Pain, Mild (Pain Scale 1-3)) 30 Days Qty: 240 0RF celecoxib 200 mg Capsule 200 mg PO BID 30 Days Qty: 60 0RF docusate sodium 100 mg Capsule 100 mg PO BID 30 Days Qty: 60 0RF oxycodone 5 mg Tablet 10 mg PO Q4H PRN (Reason: Pain, Moderate (Pain Scale 4-6) 7 Days Qty: 84 0RF Rx Instructions: Partial Fill upon patient request. Continued magnesium 200 mg Tablet 400 mg PO BEDTIME multivitamin Tablet 1 tab PO DAILY rosuvastatin 20 mg tablet 1 tab PO BEDTIME losartan 100 mg tablet 100 mg PO DAILY hydralazine 25 mg tablet 25 mg PO BID metoprolol tartrate 50 mg tablet 50 mg PO BID coenzyme Q10 [Co Q-10] 100 mg capsule 100 mg PO DAILY aspirin [Adult Low Dose Aspirin] 81 mg tablet,delayed release (DR/EC) 81 mg PO DAILY cholecalciferol (vitamin D3) 50 mcg (2,000 unit) capsule 50 mcg PO DAILY (DME) Raised toilet seat See Rx Instructions .ROUTE .MEDSUPPLY Qty: 1 0RF Rx Instructions: As directed Discharge Orders: Discharge Order (Routine); Ordered 11/07/21 Ordered By: Amy Mckniney Diet: Regular diet Activity on Discharge: Use cane or walker Stand Alone Forms: Patient Portal Discharge page Care Plan Goals: restore fxn to rt hip Health Concerns: none Plan of Treatment: Physical Therapy for total hip arthroplasty: posterior precautions, gait training, ROM, strength Limit stair climbing No showering, no tub bath-keep dressing clean, dry and intact No driving x6 weeks Continue Lovenox tabs once a day x 4 weeks Follow up with [facility] in 2 weeks Assessment: stable for d/c
--- NOTE | 2021-11-07 12:40 | HO.PM.IMPN ---
Subjective Subjective Date of Service: 11/07/21 Interval History: Seen and examined this morning Follow-up for consult Blood pressure remains borderline. Patient reports generalized weakness, no shortness of breath no chest pain no palpitation Review of Systems Review of Systems: Yes all other systems are reviewed and are negative Constitutional Constitutional: Denies chills and Denies fever(s) Cardiovascular Cardiovascular: Denies chest pain, Denies palpitations and Denies dyspnea Respiratory Respiratory: Denies cough and Denies dyspnea Gastrointestinal Gastrointestinal: Denies abdominal pain Endocrine Endocrine: Denies palpitations Physical Exam Vital Signs: Vital Signs: Last Vital Signs Temp 97.2 F 11/07/21 11:19 Pulse 83 11/07/21 11:19 Resp 18 11/07/21 11:19 BP 93/54 L 11/07/21 11:19 Pulse Ox 92 11/07/21 11:19 O2 Del Method 11/07/21 11:19 O2 Flow Rate 3 11/06/21 00:00 BMI result Body Mass Index 36.6 Const: General: cooperative, comfortable, no acute distress, alert and awake Nutritional Appearance: overweight Orientation/consciousness: patient oriented x3 Resp: Effort & Inspection: normal respiratory effort and able to speak in complete sentences Auscultation: clear to auscultation bilaterally Cardio: Rate: regular rate Heart sounds: S1 normal heart sound present and S2 normal heart sound present GI: Inspection: No distended Palpation (GI): Soft to palpation and nontender Neuro: General: patient oriented x3 Extrem: General: Yes no pedal edema Objective Data Active Medications Acetaminophen (Acetaminophen 325 Mg Tablet) 650 mg PO Q6H PRN PRN Reason: Pain, Mild (Pain Scale 1-3) Last Admin: 11/07/21 07:55 Dose: 650 mg Documented By: CINTHIA Atorvastatin Calcium (Atorvastatin Calcium 80 Mg Tablet) 80 mg PO BEDTIME [facility] Last Admin: 11/06/21 20:58 Dose: 80 mg Documented By: COLLUCRETIA Celecoxib (Celecoxib 200 Mg Capsule) 200 mg PO BID [facility] Last Admin: 11/07/21 07:56 Dose: 200 mg Documented By: CINTHIA Docusate Sodium (Docusate Sodium 100 Mg Capsule) 100 mg PO BID [facility] Last Admin: 11/07/21 07:56 Dose: 100 mg Documented By: CINTHIA Enoxaparin Sodium (Enoxaparin Sodium 40 Mg/0.4 Ml Syringe) 40 mg SUBCUT Q24H [facility] Last Admin: 11/06/21 14:26 Dose: 40 mg Documented By: EBONIE Hydralazine HCl (Hydralazine Hcl 25 Mg Tablet) 25 mg PO BID [facility]; Protocol Last Admin: 11/06/21 09:45 Dose: Not Given Documented By: EBONIE Non-Admin Reason: Physician Held Med Hydromorphone HCl (Hydromorphone Hcl 0.5 Mg/0.5 Ml Syringe) 0.25 mg IVPUSH Q4H PRN; Protocol PRN Reason: Pain, Severe (Pain Scale 7-10) Last Admin: 11/06/21 08:26 Dose: 0.25 mg Documented By: EBONIE Lactated Ringer's (Lr) 1,000 mls @ 100 mls/hr IVCONT .Q10H [facility] Last Infusion: 11/07/21 07:58 Dose: 1,000 mls/hr Documented By: CINTHIA Losartan Potassium (Losartan Potassium 50 Mg Tablet) 100 mg PO DAILY [facility]; Protocol Last Admin: 11/06/21 09:45 Dose: Not Given Documented By: EBONIE Non-Admin Reason: Physician Held Med Magnesium Oxide (Magnesium Oxide 400 Mg Tablet) 400 mg PO BEDTIME [facility] Last Admin: 11/06/21 20:58 Dose: 400 mg Documented By: KEL Metoprolol Tartrate (Metoprolol Tartrate 50 Mg Tablet) 50 mg PO BID [facility]; Protocol Last Admin: 11/06/21 09:46 Dose: Not Given Documented By: EBONIE Non-Admin Reason: Physician Held Med Multivitamins/Vitamin C (Multivitamin Tablet) 1 tab PO DAILY [facility] Last Admin: 11/07/21 07:56 Dose: 1 tab Documented By: CINTHIA Ondansetron HCl (Ondansetron Hcl 4 Mg/2 Ml Vial) 4 mg IVPUSH Q8H PRN PRN Reason: Nausea and Vomiting Last Admin: 11/05/21 17:52 Dose: 4 mg Documented By: COTALEXANDER Oxycodone HCl (Oxycodone Hcl Immed Release 5 Mg Tablet) 10 mg PO Q4H PRN PRN Reason: Pain, Moderate (Pain Scale 4-6 Last Admin: 11/06/21 02:40 Dose: 10 mg Documented By: ERIC Oxycodone HCl (Oxycodone Hcl Er 10 Mg Tab.Er.12h) 10 mg PO BID [facility] Last Admin: 11/07/21 08:00 Dose: Not Given Documented By: CINTHIA Non-Admin Reason: Patient Refused Sodium Chloride (0.9 % Sodium Chloride Flush 3 Ml Syringe) 3 ml IVFLUSH QSHIFT [facility] Last Admin: 11/07/21 07:56 Dose: Not Given Documented By: CINTHIA Non-Admin Reason: IV Running Vitamin D (Cholecalciferol (Vitamin D3) 25 Mcg Tablet) 50 mcg PO DAILY [facility] Last Admin: 11/07/21 07:56 Dose: 50 mcg Documented By: CINTHIA Labs CBC & Chem 7: 11/07/21 05:48 11/07/21 05:48 Labs: Laboratory Results - last 24 hr 11/07/21 11/07/21 11/07/21 05:48 05:48 12:31 MCV 92.8 MCH 30.8 MCHC 33.2 RDW 12.8 Plt Count 112 L MPV 12.3 Immature Gran % (Auto) 0.4 Neut % (Auto) 68.8 Lymph % (Auto) 16.2 L [place] % (Auto) 12.5 H Eos % (Auto) 1.6 Baso % (Auto) 0.5 Lymph # (Auto) 1.3 [place] # (Auto) 1.0 Eos # (Auto) 0.1 Baso # (Auto) 0.0 Abs Immat Gran (auto) 0.03 Absolute Neuts (auto) 5.5 Absolute Nucleated RBC 0.000 Nucleated RBC % (auto) 0.0 Anion Gap 10 L Estim Creat Clear Calc 70.9 Estimated GFR > 60 Fasting Glucose 126 H Calcium 7.8 L Crossmatch See Detail Assessment and Plan (1) Status post total hip replacement, right: Status: Acute Plan 70 yo F with a PMH of HTN, HLD, CAD, MARIA DE JESUS on cpap, stress-incuded CMP, prior TIA who is admitted post R ANÍBAL. Medical consult requested for routine medical H&P. Hypotension has history of HTN BP in the 90s this AM -- likely due to anemia (h/h dropped from 12/37 to 9.3/28.3 this AM). continue LR @ 100 cc hr BP meds on hold trend CBC (h/h ordered now) and consider transfusion below 8 given her history of CAD. Would recommend to hold blood pressure medication on discharge until patient can follow up with PCP Acute blood loss anemia Likely secondary to recent surgery Given history of CAD, soft blood pressure and generalized weakness would recommend to transfuse 1 unit of blood History of CAD continue statin/aspirin BB on hold due to #1; will restart once BP stable HLD statin s/p R ANÍBAL mgmt per ortho Attending-Dr. Wade Quality Stroke Does the patient have a stroke diagnosis?: No VTE Prior VTE?: No VTE Risk Level:: Medical - moderate - high VTE Device Contraindication: N/A - Device Ordered VTE Drug Contraindication: N/A - Med Ordered
[2021-11-07] MEDS: Enoxaparin Sodium 40 MG/0.4 ML SYRINGE SUBCUT (13:02)
--- NOTE | 2021-11-07 14:49 | MHC.CM.PN ---
PATIENT IS DC HOME WITH [facility] FOR HOME P.T. S.[facility] BY Thursday11/09/21 BUT AGENCY HOPES FOR THURSDAY START OF CARE
--- NOTE | 2021-11-12 12:24 | W.PM.OPN ---
Operative Note Operative Note Date of Service: 11/05/21 Narrative: Date of Service: 11/05/21 Pre-op diagnosis: Right hip OA Post-op diagnosis: same Procedure: Right ANÍBAL Implants: Mobile Trident2 50 Accolade2 #9 132 deg +0 36 ceramic Surgeon: Sharath Farrell MD Anesthesia: GETA and local Was an Product Introduction Manager used for this Procedure?: Yes Product Introduction Manager: Amy Mckinney Estimated blood loss (mL): 200 IV fluids (mL): 850 Pathology: other Condition: stable Disposition: PACU Procedure in detail: Patient was brought into the operating room and placed in the left lateral decubitus position. All bony prominences were well padded and the limb was prepped and draped in standard sterile fashion. Time-out was called to identify proper site procedure proper surgeon IV antibiotics and 1 g of transaxemic acid were administered. I began by making a curvilinear incision over the posterolateral aspect of the greater trochanter. Dissection was taken down to the tensor fascia which was incised in line with the incision and a Charnley retractor was placed. Cautery was used to maintain hemostasis. The hip was internally rotated and the external rotators were identified. The vessels were cauterized and a full-thickness capsular/external rotator layer was developed starting just proximal to the piriformis. This layer was tagged and a dull Hohmann retractor was placed underneath the neck in the hip was dislocated. The head was eburnated. . A neck cut was made 1 cm proximal to the lesser trochanter and the head and neck were removed and measured as a 46 on the back table. I started with a 42mm reamer and medialized and sequentially reamed up to a size 50 and impacted a 50 at approximately 45 degrees of inclination and 25 degrees of version. I then placed a neutral liner and turned my attention to the femur. I identified the piriformis insertion and used this as a starting point for my nano cutter. The medius tendon was protected with a Hibs retractor. I then used a Charnley awl to identify the canal and a curved curette to remove the lateral bone. I irrigated copiously. I then sequentially broached in the patient's natural version to a size #9 and placed my trial implants. Using a trail head I took the hip through range of motion. I was very satisfied with the stability and length. Therefore I removed all instrumentation and copiously irrigated. I placed my final femoral implant and again took the hip through range of motion and was satisfied with the stability and length usinag a +0. I then irrigated for 3 minutes with iodine and placed 1 g of local tranaxemic acid. I then performed a capsular closure with 2.0 fiberwire, Corky's fascia with 0 Vicryl, subcuticular with 2-0 Vicryl and the skin with lorna. Patient was placed into a sterile dressing. Radiographs were obtained at the completion of the case and I was satisfied with the component position. Patient was extubated brought to the recovery room in stable condition.
== END 2021-11-07 17:45 | disposition home or self-care (01) | DRG 470 ==
LOC: HO.SSS 11:46 → HO.SSSA 12:19 → HO.S3 14:25
PROVIDERS: Family Medicine; Nurse Practitioner; Admitting Provider Physician Assistant; PCP Internal Medicine; Visit Provider Orthopaedic Surgery
PROC: 0SR903A Replacement of Right Hip Joint with Ceramic Synthetic Substitute, Uncemented, Open Approach (ICD-10-PCS; CPT 27130; principal; 2021-11-05 15:00)
DX: M16.11 Unilateral primary osteoarthritis, right hip (principal); D62 Acute posthemorrhagic anemia; I95.9 Hypotension, unspecified; G89.29 Other chronic pain; I10 Essential (primary) hypertension; I25.2 Old myocardial infarction; E78.5 Hyperlipidemia, unspecified; I25.10 Atherosclerotic heart disease of native coronary artery without angina pectoris; D33.3 Benign neoplasm of cranial nerves; Z20.822 Contact with and (suspected) exposure to COVID-19; Z86.73 Personal history of transient ischemic attack (TIA), and cerebral infarction without residual deficits; Z98.42 Cataract extraction status, left eye; Z98.41 Cataract extraction status, right eye; Z87.891 Personal history of nicotine dependence; Z79.899 Other long term (current) drug therapy
CPT/HCPCS: 27130; 36415; 72170; 80048; 85014; 85018; 85025; 86850; 86900; 86901; 86923; 87635; 87640; 87641; 88304; 88311; 97110; 97116; 97162; 97165; C1713; C1776; J0131; J0690; J1100; J1170; J1650; J2250; J2405; J3010; P9016

== ENCOUNTER 2021-11-21 07:12 | Outpatient (RCR) | payer MEDICARE, SELFPAY ==
--- NOTE | ~2021-11-21 | XR_ITS ---
EXAMINATION: XR PELVIS CLINICAL INFORMATION: Hip pain COMPARISON: Radiograph pelvis 11/05/2021, right hip radiographs 06/11/2021 TECHNIQUE: AP x2 views of the pelvis are obtained. FINDINGS: There has been prior right hip arthroplasty. Hardware is intact. No destructive process, fracture, or osteolysis. There are degenerative changes lower lumbar spine. The SI joints there are unremarkable. There is mild superior spurring. Base similar to prior exam. There is mild narrowing superolateral left hip joint with some probable fine chondrocalcinosis articular cartilage. No visible erosive changes. XR/XR pelvis 1-2V IMPRESSION: -Prior right hip arthroplasty, normal. -Degenerative changes lumbosacral spine. -Degenerative changes left hip.
== END 2022-01-18 15:31 | disposition home or self-care (01) ==
LOC: HO.PT 07:12
PROVIDERS: Visit Provider Physician Assistant
DX: M25.551 Pain in right hip (principal)
CPT/HCPCS: 72170

== ENCOUNTER 2021-11-21 11:48 | Outpatient (REF) | payer MEDICARE, SELFPAY | END 2021-11-21 11:49 | disposition home or self-care (01) | LOC: HO.HOSX 11:48 | PROVIDERS: Visit Provider Orthopaedic Surgery | DX: Z13.89 Encounter for screening for other disorder (principal) ==

== ENCOUNTER 2021-12-31 14:00 | Outpatient (RCR) | payer MEDICARE, SELFPAY ==
--- NOTE | 2021-12-05 16:47 | MHC.PT.EP ---
[facility] [place] [facility] [place] [facility] [address] Osman Vences [address] [phone] F: [phone] F: [phone] F: [phone] F: [phone] Physical Therapy Plan of Care Date of Evaluation: Date of Surgery: 11/06/2021 Diagnosis: s/p presence of R artificial hip joint Assessment: Patient is a 71 year old female presenting to PT with complaints of pain in s/p R ANÍBAL on 11/06/2021. She presents today with impairments in pain, ROM, knee strength, hip strength, gait mechanics. Pt's current occupation is retired, with baseline physical activities including ambulation, stair negotiation, ADLs, gardening. 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 Clinical presentation today is most consistent with signs and sx associated with s/p R ANÍBAL on 11/06/2021 and pt will benefit from skilled PT to address the following problems and impairments noted upon evaluation: pain, ROM, knee strength, hip strength, gait mechanics. These problems limit the patient with the following functional activities: ambulation, stair negotiation, ADLs, gardening. The prescribed treatment plan of care is medically necessary. Co-morbidities of HTN, hx CVA, hx MO 2018, hx TIA were identified and taken into considerations of plan of care. Pt was educated on HEP, role of PT, prognosis, POC. Frequency and Duration: The patient will be seen 2 x week x 4 weeks Short Term Goals: Pt will demonstrate improved hip MMT by 1/3 grade in 2 weeks for improved lumbopelvic stability. Pt will demonstrate 5/5 knee strength in 2 weeks for improved tolerance to transfers. Pt will demonstrate ability to transfer from seated with good efficiency and mechanics in 2 weeks. Mcc Goals: Pt will demonstrate improved LEFI score by 9 points for improved functional mobility in 4 weeks. Pt will demonstrate ability to ambulate with good mechanics and min to no pain and LRD in 4 weeks for improved access to the community. Pt will demonstrate ability to negotiate stairs with min to no pain or difficulty in 4 weeks for improved access to her home. Treatment Plan: Modalities to reduce pain, spasms and effusion. Manual therapy to restore motion and function. Therapeutic exercise to improve strength and flexibility. Neuromuscular re-education for posture and balance. Therapeutic activities to return to functional activities of daily living. Electronically signed by: Farida Castelan, PT, DPT, ATC Please sign and return to therapist. Thank you for your referral.
--- NOTE | 2021-12-31 16:21 | MHC.PT.DC ---
[facility] [place] [facility] [place] [facility] [place] [facility] [address] Osman Vences [address] [phone] F: [phone] F: [phone] F: [phone] F: [phone] Physical Therapy Discharge Report Diagnosis: s/p presence of R artificial hip joint Date of Surgery: 11/06/2021 Date of Evaluation: 12/05/21 Date of Discharge: 12/31/21 Treatments to Date: 8 Cancellations to Date: 0 No Shows to Date: 0 Discharge Status: Improved Function Independent with HEP Patient Elected to Stop Discharge Summary: Pt has made good progress thus far since beginning skilled PT allowing her to make good progress towards her goals. She is requesting to stop PT at this point as she feels independent in her HEP and ready to work on continuing with strengthening at home. Overall she does still demonstrate some antalgia at times and fatigues towards the end of the day with some associated soreness but I think that continued compliance with her HEP will allow this to improve. Therefore I feel her request to stop PT at this point is realistic. Pt understands importance of half-way continuation of HEP and is agreeable with today's plan. Electronically signed by: Farida Castelan, PT, DPT, ATC Please sign and return to therapist. Thank you for your referral.
== END 2021-12-31 16:22 | disposition home or self-care (01) ==
LOC: HO.PTCHIC 14:00
PROVIDERS: PCP Internal Medicine; Visit Provider Physician Assistant
DX: Z96.641 Presence of right artificial hip joint (principal)
CPT/HCPCS: 97110; 97112; 97162

== ENCOUNTER 2022-01-24 08:45 | Outpatient (REF) | payer MEDICARE, SELFPAY ==
--- NOTE | ~2022-01-24 | XR_ITS ---
EXAMINATION: XR HIP, RIGHT WITH AP PELVIS CLINICAL INFORMATION: Pain. COMPARISON: Prior radiographs, most recently 11/21/2021. TECHNIQUE: AP and frog-leg lateral views of the right hip are submitted, together with a frontal view of the pelvis. FINDINGS: There is bony demineralization. Prosthetic components of the right total hip arthroplasty are appropriately aligned without periprosthetic fracture or abnormal lucency. No component migration. Soft tissues are normal. There is mild to moderate narrowing of the left acetabular joint space, most pronounced medially and superiorly. The left femoral head appears smooth. No left hip fracture or dislocation is seen. The sacroiliac joints are symmetric and well-maintained. The pubic symphysis is intact. There are incompletely characterized degenerative changes of the lower lumbar spine. XR/XR hip RT w PEL1V IMPRESSION: 1. Appropriate alignment of the right total hip arthroplasty without surrounding abnormalities. 2. There is mild to moderate osteoarthritic change of the left hip.
== END 2022-01-24 08:46 | disposition home or self-care (01) ==
LOC: HO.HOSX 08:45
PROVIDERS: Visit Provider Physician Assistant
DX: M25.551 Pain in right hip (principal)
CPT/HCPCS: 73502

== ENCOUNTER 2022-04-22 11:10 | Outpatient (REF) | payer MEDICARE, SELFPAY ==
--- NOTE | ~2022-04-22 | MM_ITS ---
EXAMINATION: MM SCREENING DIGITAL BREAST TOMOSYNTHESIS, BILATERAL CLINICAL INFORMATION: Screening. Asymptomatic. The lifetime risk of breast cancer based on the Tyrer-Cuzick Model is 4%. COMPARISON: Mammography: April 19, 2021 and studies dating back to August 22, 2014 TECHNIQUE: Digital breast tomosynthesis is performed in both the craniocaudal and mediolateral oblique views along with computer-aided detection (CAD). Synthesized 2D images are generated from the tomosynthesis. Cleavage view also performed. FINDINGS: There are scattered areas of fibroglandular density (ACR BI-RADS breast composition Category b). There are no significant masses, abnormal calcifications, or other abnormalities. Right-sided ventriculoperitoneal shunt seen. MM/MM tomosynthesis screening BI IMPRESSION: No significant changes from prior exam. ASSESSMENT: BI-RADS 1: Negative RECOMMENDATION: Routine annual mammography screening. This patient's information was entered into a reminder system with a target due date for their next mammogram.
== END 2022-04-22 11:11 | disposition home or self-care (01) ==
LOC: HO.MAMMO 11:10
PROVIDERS: Visit Provider Internal Medicine
DX: Z12.31 Encounter for screening mammogram for malignant neoplasm of breast (principal)
CPT/HCPCS: 77063; 77067

== ENCOUNTER 2022-06-09 09:49 | Outpatient (REF) | payer MEDICARE, SELFPAY ==
[2022-06-09 11:52] LABS: MANUAL DIFF FLAG NO
[2022-06-09 12:13] LABS: Basophils Percent Auto 0.7 % (0-2); Eosinophils Absolute Auto 0.2 X10*3/uL (0.0-0.4); Eosinophils Percent Auto 3.4 % (0-4); Hematocrit 38.5 % (37.0-47.0); Hemoglobin 12.7 g/dl (12.0-16.0); Imm Gran Abs Auto 0.02 X10*3/uL (0.00-0.03); Imm Gran Pct Auto 0.4 % (0.0-0.4); Lymphocytes Absolute Auto 1.8 X10*3/uL (1.2-4.9); Lymphocytes Percent Auto 32.3 % (20-40); Mean Corpuscular Hemoglobin 30.8 pg (27.0-33.0); Mean Corpuscular Volume 93.2 fL (80.0-98.0); Mean Platelet Volume 12.2 fL (9.4-12.3); Monocytes Absolute Auto 0.4 X10*3/uL (0.1-1.2); Monocytes Percent Auto 7.5 % (2-11); Neutrophils Absolute Auto 3.1 x10*3/uL (2.0-8.3); Neutrophils Percent Auto 55.7 % (45-73); Platelet Count 144 X10*3/uL (160-400); Red Blood Count 4.13 X10*6/uL (4.20-5.50); Red Cell Distribution Width 12.4 % (11.0-16.0); White Blood Count 5.6 X10*3/uL (4.8-10.8)
[2022-06-09 12:23] LABS: Estimated Average Glucose 117 mg/dL; Hemoglobin A1c % 5.7 %
[2022-06-09 12:51] LABS: Alanine Aminotransferase 23 U/L (0-31); Aspartate Amino Transferase 23 U/L (5-31); Cholesterol 148 mg/dL; HDL Cholesterol 42 mg/dL; Iron 95 mcg/dL (30-160); LDL Cholesterol Calculated 70 mg/dl; Percent Iron Saturation 34 % (15-50); Total Iron Binding Capacity 282 mcg/dL (228-428); Triglycerides 181 mg/dL; Unsaturated Iron Binding 187 ug/dL; Vitamin D 25-OH Total 52.8 ng/mL (>30)
== END 2022-06-09 09:50 | disposition home or self-care (01) ==
LOC: HO.HMGCLDS 09:49
PROVIDERS: Visit Provider Internal Medicine
DX: Z00.01 Encounter for general adult medical examination with abnormal findings (principal); R73.01 Impaired fasting glucose; E78.5 Hyperlipidemia, unspecified; I10 Essential (primary) hypertension; Z86.2 Personal history of diseases of the blood and blood-forming organs and certain disorders involving the immune mechanism
CPT/HCPCS: 36415; 80061; 82306; 83036; 83540; 84450; 84460; 85025

== ENCOUNTER 2023-02-02 08:24 | Outpatient (REF) | payer MEDICARE, SELFPAY ==
--- NOTE | ~2023-02-02 | XR_ITS ---
EXAMINATION: XR PELVIS CLINICAL INFORMATION: Pain COMPARISON: Hip and pelvis radiographs 01/24/2022 TECHNIQUE: AP view of the pelvis. FINDINGS: No acute fracture or dislocation appreciated on this limited single view. Status post right total hip arthroplasty in anatomic alignment. No evidence of hardware fracture or complication. Moderate degenerative changes of the left hip with loss of superolateral joint space and degenerative spurring similar to prior. Calcified phleboliths in the pelvis. XR/XR pelvis 1-2V IMPRESSION: 1. Status post right total hip arthroplasty in anatomic alignment. No evidence of hardware fracture or complication. 2. Moderate degenerative changes of the left hip similar to prior.
== END 2023-02-02 08:25 | disposition home or self-care (01) ==
LOC: HO.HOSX 08:24
PROVIDERS: Visit Provider Orthopaedic Surgery
DX: M25.552 Pain in left hip (principal); Z96.642 Presence of left artificial hip joint; Z79.899 Other long term (current) drug therapy
CPT/HCPCS: 72170

== ENCOUNTER 2023-02-02 10:01 | Outpatient (AMB) | payer MEDICARE, SELFPAY ==
--- NOTE | 2023-02-02 10:10 | MHC.OFFVIS ---
Intake Intake Visit Reasons: ov-S/P LT ANÍBAL 11/06/21 NE w/xray Intake Note: Myra is a 72 year old female who presents today for a follow up appointment s/p Left ANÍBAL 11/06/21. X rays updated in the office today. She reports no issues and states everything is going well. Allergies No Known Allergies Allergy (Unknown, Verified 02/02/23 10:13) Medication List - Last Reconciled 02/02/23 by Tessie Esquivel RN aspirin (Adult Low Dose Aspirin) 81 mg PO DAILY cholecalciferol (vitamin D3) 50 mcg PO DAILY coenzyme Q10 (Co Q-10) 100 mg PO DAILY hydralazine 25 mg PO BID losartan 100 mg PO DAILY magnesium 250 mg PO BEDTIME metoprolol tartrate 50 mg PO BID multivitamin 1 tab PO DAILY [Raised toilet seat As directed] rosuvastatin 20 mg PO BEDTIME HPI ov-S/P LT ANÍBAL 11/06/21 NE w/xray HPI Details Myra is a 72 year old woman~15 months S/P right ANÍBAL. She says she is doing wonderfully and she is able to engage in all activities she desires. She is happy with the results of her surgery and has no complaints. [facility] Medical History (Updated 06/09/22 @ 09:25 by Katelyn Yap MD) Former heavy cigarette smoker (20-39 per day) Impaired fasting glucose History of anemia Normal pressure hydrocephalus Hypotension Vestibular schwannoma History of CVA (cerebrovascular accident) Stress-induced cardiomyopathy Hx of non-ST elevation myocardial infarction (NSTEMI) MARIA DE JESUS on CPAP Hx of transient ischemic attack (TIA) Osteoarthritis, hip, bilateral Dyslipidemia Essential hypertension Chronic pain of right groin Surgical History Hx of bilateral cataract extraction Hx of breast surgery Hx of cardiac catheterization Hx of colonoscopy Hx of ovarian cystectomy S/P LASIK surgery S/P SCHOOL PHYSICAL THERAPIST shunt Family History Father Substance use disorder Son Substance use disorder Paternal Aunt Mental health disorder Social History (Updated 06/09/22 @ 09:12 by Katelyn Yap MD) Household Members Other:: grandaughter Housing: House Are you a primary medicare contact specialist to a significant other at home: No Do you presently have visiting nurse or other home services: No Alcohol intake: current Alcohol intake frequency: holidays/special occasions only Alcohol type: hard liquor Patient Tobacco Use Status: Former Tobacco user Quit Date: 11/12/07 Tobacco use type: Cigarette Cigarette Packs Per Day: 1 Years Smoked: 50 e-Cigarette/Vaping Use: Never Used service: No Current occupational status: retired Cognitive needs: No Hearing needs: No Vision needs: Yes Review of Systems Const All systems reviewed & are unremarkable except as noted in HPI and below Physical Exam Const General: no acute distress, alert and awake Orientation/consciousness: patient oriented x3 HEENT Head: Yes normocephalic and Yes atraumatic Eyes EOM: EOMs intact bilaterally Resp Effort & Inspection: normal respiratory effort and able to speak in complete sentences Cardio Jugular venous distension: no JVD Skin General skin exam: turgor normal Rashes: no rashes Neuro General: patient oriented x3 Extrem Other: inc c/d/i no groin pain with hip ROM nl gait Psych Appearance: grossly normal Affect: normal affect Attitude: cooperative Results Reviewed Results Reviewed: I personally reviewed relevant radiographs. Right ANÍBAL in expected post operative position with no hardware complications or evidence of loosening Assessment & Plan Assessment & Plan (1) Status post total hip replacement, right: Code(s): Z96.641 - Presence of right artificial hip joint Plan: This is a 72 year old woman S/P right ANÍBAL, DOS: 11/05/22. She is doing very well, without complaints, and is happy with the results of her surgery. Dental prophylaxis and f/u as needed. Plan Scribed for Sharath Farrell MD by Milton Dunlap, medical oncology physician, on 02/02/23 at 10:25 AM, EST. Orders: Orders XR pelvis 1-2V 02/02/23 M25.559 - Pain in unspecified hip Coding Level of Care Code Global (34528) Diagnoses Status post total hip replacement, right Z96.641
== END 2023-02-02 10:26 | disposition home or self-care (01) ==
LOC: HO.HOS 10:01
PROVIDERS: PCP Internal Medicine; Visit Provider Orthopaedic Surgery
DX: Z47.1 Aftercare following joint replacement surgery (principal); Z96.641 Presence of right artificial hip joint
CPT/HCPCS: 99024

== ENCOUNTER 2023-04-16 12:23 | Outpatient (REF) | payer MEDICARE, SELFPAY ==
[2023-04-16 14:01] LABS: Anion Gap 11 (12-20); Blood Urea Nitrogen 14 mg/dL (9-16); Calcium 9.2 mg/dL (8.4-10.2); Carbon Dioxide 28 mmol/L (22-29); Chloride 108 mmol/L (96-108); Estimated Glomerular Filt Rate > 60; Glucose Random 104 mg/dL (60-115); Potassium 4.2 mmol/L (3.3-5.1); Sodium 143 mmol/L (135-145)
== END 2023-04-16 12:24 | disposition home or self-care (01) ==
LOC: HO.HMGCLDS 12:23
PROVIDERS: PCP Internal Medicine; Visit Provider Nurse Practitioner Family
DX: I51.81 Takotsubo syndrome (principal)
CPT/HCPCS: 36415; 80048

== ENCOUNTER 2023-04-24 10:12 | Outpatient (REF) | payer MEDICARE, SELFPAY ==
--- NOTE | ~2023-04-24 | MM_ITS ---
EXAMINATION: MM SCREENING DIGITAL BREAST TOMOSYNTHESIS, BILATERAL CLINICAL INFORMATION: Screening. Asymptomatic. COMPARISON: Mammography: This study is compared with prior exams dating back to 2018. TECHNIQUE: Digital breast tomosynthesis is performed in both the craniocaudal and mediolateral oblique views along with computer-aided detection (CAD). Synthesized 2D images are generated from the tomosynthesis. FINDINGS: The breasts are almost entirely fatty (ACR BI-RADS breast composition Category a). There are no significant masses, abnormal calcifications, or other abnormalities. There is a segment of ventriculoperitoneal shunt tubing traversing the deep aspect of the right breast. In the segment of shunt tubing included is intact. MM/MM tomosynthesis screening BI IMPRESSION: No mammographic evidence of malignancy. ASSESSMENT: BI-RADS BI-RADS 1 - Negative RECOMMENDATION: Routine annual mammography screening. 1 year F/U This examination should not preclude the clinical evaluation of a suspicious palpable abnormality. This patient's information was entered into a reminder system with a target due date for their next mammogram.
--- NOTE | ~2023-04-24 | MM_ITS ---
EXAMINATION: BONE DENSITOMETRY CLINICAL INDICATION: Unspecified menopausal and perimenopausal disorder. COMPARISON: This is the patient's baseline examination. TECHNIQUE: Using a [employer] DXA System (software version: 13.1) manufactured by [employer], dual-energy x-ray absorptiometry was performed of the lumbar spine and left hip. The images are of good technical quality. Summary results are attached. FINDINGS: LEFT FEMUR, NECK: BMD 0.763 g/cm2, Z-score -1.0, T-score -2.0, osteopenia. LEFT FEMUR, TOTAL: BMD 0.797 g/cm2, Z-score -1.0, T-score -1.7, osteopenia. AP SPINE L1-L4 (excluding L3): The data of L1-L4 has been changed to exclude the L3 vertebral body, because degenerative sclerosis at this level may cause overestimation of lumbar spine density. BMD 1.484 g/cm2, Z-score 3.1, T-score 2.6, normal. IDENTIFIED RISK FACTORS: Early menopause, secondary osteoporosis, right oophorectomy, current smoker. HISTORY OF FRACTURE: None listed. MEDICATIONS: Multivitamin. MM/XR DEXA axial skeleton IMPRESSION: 1. DIAGNOSIS: Osteopenia based on the lowest T-score value of -2.0 in the femoral neck applying World Health Organization criteria. 2. 10-YEAR FRACTURE RISK PREDICTION, FRAX: Major osteoporotic fracture (clinical spine, forearm, hip or shoulder) 11.4%. Hip fracture 3.3%. 3. Treatment Recommendations: NOF guidelines recommend consideration for treatment in postmenopausal women and men age 50 and older presenting with the following: -A hip or vertebral (clinical or morphometric) fracture. -T-score less than or equal to -2.5 at the femoral neck or spine after appropriate evaluation to exclude secondary causes. -Low bone mass at the hip or spine and a 10-year fracture probability by FRAX of greater than or equal to 3% for hip fracture or greater than or equal to 20% for major osteoporotic fracture based on the [place] adapted WHO algorithm. 4. Other Recommendations: All treatment decisions require clinical judgment and consideration of individual patient factors, including patient preferences, comorbidities, previous drug use, risk factors not captured in the FRAX model (e.g. frailty, falls, vitamin D deficiency, increased bone turnover, interval significant decline in bone density) and possible under or overestimation of fracture risk by FRAX. Additional medical evaluation for secondary cause of low bone mineral density may be appropriate. FUTURE SCAN RECOMMENDATION: People with diagnosed cases of osteoporosis or at high risk for fracture should have regular bone mineral density tests. For patients eligible for Medicare, routine testing is allowed once every 2 years. The testing frequency can be increased to one year for patients who have rapidly progressing disease, those who are receiving or discontinuing medical therapy to restore bone mass, or have additional risk factors.
== END 2023-04-24 10:13 | disposition home or self-care (01) ==
LOC: HO.MAMMO 10:12
PROVIDERS: PCP Internal Medicine; Visit Provider Internal Medicine
DX: Z12.31 Encounter for screening mammogram for malignant neoplasm of breast (principal); Z13.820 Encounter for screening for osteoporosis; Z78.0 Asymptomatic menopausal state
CPT/HCPCS: 77063; 77067; 77080

== ENCOUNTER → 2023-04-24 10:30 | Outpatient (BNV) | payer MEDICARE, SELFPAY | PROVIDERS: PCP Internal Medicine; Visit Provider Radiology Diagnostic Radiology | DX: Z12.31 Encounter for screening mammogram for malignant neoplasm of breast (principal) | CPT/HCPCS: 77063; 77067 ==

== ENCOUNTER 2023-06-10 10:58 | Outpatient (AMB) | payer MEDICARE, SELFPAY ==
--- NOTE | 2023-06-10 11:01 | A.OFFPC_ITS ---
Vital Signs 06/10/23 11:04 Height 5 ft 6 in Weight 233 lb BMI 37.6 BP 130/60 Blood Pressure Location Rt brachial Position Sitting Pulse 64 Pulse Source Pulse Oximeter Pulse Oximetry (%) 96 Oxygen Delivery Method Room Air Intake Visit Reasons: PE Intake Note: Pt is here today for her PE: last mammogram and bone density 04/24/23: Colonscopy 2019 Allergies No Known Allergies Allergy (Unknown, Verified 06/10/23 11:25) Medication List - Last Reconciled 06/10/23 by Katelyn Yap MD aspirin (Adult Low Dose Aspirin) 81 mg PO DAILY coenzyme Q10 (Co Q-10) 100 mg PO DAILY hydralazine 25 mg PO BID losartan 100 mg PO DAILY magnesium 250 mg PO BEDTIME metoprolol tartrate 50 mg PO BID multivitamin 1 tab PO DAILY [Raised toilet seat As directed] rosuvastatin 20 mg PO BEDTIME Tobacco use date assessed: 06/10/23 Fall risk assessment: No Falls in past year Last assessed Fall Risk: 06/10/23 Dental Screening Dental Screen Date: 06/10/23 Did you have a dental visit in the last 12 months?: No Was dental information given to patient?: Patient declined HPI PE HPI Details 72-year-old lady , with history of non S T elevation [place], history of stress-induced cardiomyopathy, history of schwannoma left, history of CVA, history of normal pressure hydrocephalus status post PATIENT ACCESS REGISTRAR shunt in 2018, has d yslipidemia, hypertension, history of anemia, osteoarthritis, MARIA DE JESUS on CPAP, and impaired fasting glucose, here today for physical exam. She is up-to-date with her screening mammogram and bone density scan done April 2023. Up-to-date with her screening colonoscopy done by Dr. Brar, last done 06/03/2019 with normal findings. [facility] Medical History (Updated 06/10/23 @ 12:03 by Katelyn Yap MD) Osteopenia of multiple sites Former heavy cigarette smoker (20-39 per day) Impaired fasting glucose History of anemia Normal pressure hydrocephalus Hypotension Vestibular schwannoma History of CVA (cerebrovascular accident) Stress-induced cardiomyopathy Hx of non-ST elevation myocardial infarction (NSTEMI) MARIA DE JESUS on CPAP Hx of transient ischemic attack (TIA) Osteoarthritis, hip, bilateral Dyslipidemia Essential hypertension Chronic pain of right groin Surgical History (Updated 06/15/23 @ 02:40 by Katelyn Yap MD) History of total right hip arthroplasty Hx of colonoscopy Hx of ovarian cystectomy Hx of breast surgery Hx of bilateral cataract extraction S/P LASIK surgery S/P PATIENT ACCESS REGISTRAR shunt Hx of cardiac catheterization Family History Father Substance use disorder Son Substance use disorder Paternal Aunt Mental health disorder Social History Household Members Other:: [facility] Housing: House Are you a primary home care assistant to a significant other at home: No Do you presently have visiting nurse or other home services: No Alcohol intake: current Alcohol intake frequency: holidays/special occasions only Alcohol type: hard liquor Patient Tobacco Use Status: Former Tobacco user Quit Date: 11/12/07 Tobacco use type: Cigarette Cigarette Packs Per Day: 1 Years Smoked: 50 e-Cigarette/Vaping Use: Never Used service: No Current occupational status: retired Cognitive needs: No Hearing needs: No Vision needs: Yes Questionnaire PHQ-9 Over the last 2 weeks, how often have you been bothered by any of the following problems? 1. Little interest or pleasure in doing things: several days 2. Feeling down, depressed, or hopeless: not at all 3. Trouble falling or staying asleep, or sleeping too much: several days 4. Feeling tired or having little energy: several days 5. Poor appetite or overeating: several days 6. Feeling bad about yourself - or that you are a failure or have let yourself or your family down: not at all 7. Trouble concentrating on things, such as reading the newspaper or watching television: not at all 8. Moving or speaking so slowly that other people could have noticed. Or the opposite - being so fidgety or restless that you have been moving around a lot more than usual: not at all 9. Thoughts that you would be better off or of hurting yourself in some way: not at all Total score: 4 Depression Screening Interpretation: Negative Depression Screening Done: Yes 49264 - PHQ-9 Billing: Yes Source: Developed by Drs. Jeronimo Taylor, Aubree Joseph, Chencho Gaytan and colleagues, with an educational shikha from [employer]. Thrive Questionnaire Date Thrive assessed: 06/10/23 I am a: Patient What is your living situation today?: I have a steady place to live Within the past 12 months, did the food you bought not last and you didn't have the money to get more?: Sometimes True Within the past 12 months, did you worry whether your food would run out before you got money to buy more?: Sometimes True Do you have trouble paying for medicines?: No Do you have trouble getting transportation to medical appointments?: No Do you have trouble paying your heating and electricity bill?: No Do you have trouble taking care of your child, family member or friend?: No Do you have trouble with day-to-day activities such as bathing, preparing meals, shopping, managing finances, etc.?: No Are you currently unemployed and looking for a job?: No Are you interested in more education?: No THRIVE Score: 2 AUDIT C Alcohol Use Questionnaire (AUDIT-C) 1. How often do you have a drink containing alcohol?: Never Total Score: 0 VASU-7 AMB Questionnaire VASU-7 Date VASU - 7 assessed: 06/10/23 Feeling nervous, anxious, or on edge: 0 = Not at all Not being able to stop or control worryin = Not at all Worrying too much about different things: 0 = Not at all Trouble relaxin = Not at all Being so restless that it is hard to sit still: 0 = Not at all Becoming easily annoyed or irritable: 0 = Not at all Feeling afraid as if something awful might happen: 0 = Not at all Total VASU-7 score (0-4 normal; 5-9 mild; 10-14 moderate; 15-21 severe): 0 Source: Developed by Drs. Jeronimo Taylor, Aubree Joseph, Chencho Gaytan and colleagues, with an educational shikha from [employer]. VASU-7 Assessment Billing VASU-7 Assessment Tool: VASU-7 Assessment 39320 Review of Systems Const Denies body aches, Denies fatigue, Denies fever(s), Denies headache(s) and Denies weakness Eyes Details: sees Dr Davis Denies change in vision ENT Denies dizziness, Denies headache(s), Denies nasal congestion, Denies nasal d ischarge and Denies sore throat Card Denies chest pain, Denies lightheadedness, Denies palpitations and Denies dyspnea Resp Denies chest congestion, Denies cough, Denies dyspnea and Denies wheezing GI Denies abdominal pain, Denies change in bowel habits and Denies heartburn Denies hematuria, Denies urinary frequency, Denies dysuria and Denies urinary urgency Musc Reports no additional complaints Skin/Breast Denies breast pain, Denies breast mass, Denies lesions and Denies rash Neuro Denies dizziness, Denies headache(s) and Denies weakness Psych Reports no additional complaints Endo Denies fatigue, Denies polydipsia, Denies polyuria and Denies palpitations Shahzad/Lymph Denies easy bruising Aller/Immun Denies seasonal rhinorrhea and Denies wheezing Physical exam (Primary Care) Vital Signs: Last Vital Signs Pulse 64 06/10/23 11:04 BP 130/60 06/10/23 11:04 Pulse Ox 96 06/10/23 11:04 Oxygen Delivery Method Room Air 06/10/23 11:04 BMI result Body Mass Index 37.6 Tobacco/Smoking Status: Tobacco use Status Tobacco use date assessed 06/10/23 06/10/23 11:06 Patient Tobacco Use Status Former Tobacco user 06/10/23 11:06 Tobacco use type Cigarette 06/10/23 11:06 e-Cigarette/Vaping Use Never Used 06/10/23 11:06 PHQ-9: PHQ-9 Score PHQ-9: Total score 4 06/10/23 12:07 Depression Screening Interpretation: Negative Thrive Assessment: Date of Thrive Assessment Date Thrive assessed 06/10/23 06/10/23 11:51 Const General: cooperative, comfortable and no acute distress Nutritional Appearance: obese Orientation/consciousness: patient oriented x3 HENMT Head: Yes normocephalic Ears: hearing grossly normal bilaterally Mouth: Normal oral and palatal mucosa present and moist mucous membranes Eyes General: appearance normal, both eyes and all related structures Neck Neck: Yes full ROM, Yes no lymphadenopathy and Yes supple Chest Breast/axilla palpation: normal palpation of the breasts Resp Effort & Inspection: normal respiratory effort and able to speak in complete sentences Auscultation: clear to auscultation bilaterally Cardio Rate: regular rate Rhythm: regular rhythm Heart sounds: S1 normal heart sound present and S2 normal heart sound present GI Palpation (GI): Soft to palpation, nontender, no guarding and no masses Auscultation: normal bowel sounds General: Yes no CVA tenderness Back/Spine/Pelvis Back: no CVA tenderness and No back tenderness Pelvis: no pain with anterior-posterior compression Skin General skin exam: no rashes or lesions noted Neuro General: patient oriented x3, gait normal, moves all extremities and no focal motor deficits Extrem General: Yes full ROM, Yes no joint enlargement and Yes no pedal edema Psych Appearance: grossly normal Mental Status: mental status grossly normal Speech and movement: Normal speech and movement present Affect: normal affect Attitude: cooperative Results Reviewed Results Reviewed: Name: Myra Sandoval Age/Sex: 72/F : 1950 Unit#: [id number] Attend Dr: Shane Jimenez [employer] Re04/16/23 Status: DEP REF Location: [facility] Disch: SPEC : [id number] ALEXI: 04/16/23 STATUS: COMP REQ : [id number] RECD: 04/16/[address]: Shane Jimenez NP COMP: 04/16/23-140 ENTERED: 04/16/[address]: Katelyn Yap MD ORDERED: BMP Test Result Flag Reference Sodium 143 135-145 mmol/L Potassium 4.2 3.3-5.1 mmol/L CL 108 96-108 mmol/L CO2 28 22-29 mmol/L Gap 11 L 12-20 BUN 14 9-16 mg/dL Creat 0.84 0.5-1.4 mg/dL EGFR > 60 NOTE: For -Armenian individuals, multiply the result by 1.210. Chronic Kidney Disease: Estimated GFR < 60 mL/min/1.73m2 Severe Kidney Disease: Estimated GFR < 15 mL/min/1.73m2 Glucose, Random 104 60-115 mg/dL CA 9.2 # 8.4-10.2 mg/dL Assessment and Plan Assessment & Plan (1) Annual visit for general adult medical examination with abnormal findings: Code(s): Z00.01 - Encounter for general adult medical examination with abnormal findings Plan: Will check appropriate labs. Recommended dental visit every 6 months and regular eye exams, at least every 2 years. Take adequate calcium in diet and vitamin-D 3 at 2000 IU per cap once a day, in addition to weight-bearing exercises to help maintain good muscle tone and weight control. Instructed to do self-breast exam, and continue with yearly mammogram and bone density every 2 years. Colonoscopy is up-to-date, and is up-to-date with all her vaccinations. (2) Hx of non-ST elevation myocardial infarction (NSTEMI): Comment: 2018 sees Shane Lima q 6 months at [facility] Code(s): I25.2 - Old myocardial infarction Plan: Currently on aspirin 81 mg daily, metoprolol tartrate 50 mg 1 tablet twice a day and rosuvastatin 20 mg at bedtime, followed by Dr. Lima (3) History of CVA (cerebrovascular accident): Code(s): Z86.73 - Personal history of transient ischemic attack (TIA), and cerebral infarction without residual deficits Plan: Continue aspirin 81 mg daily and good control of blood pressure and cholesterol levels is important. (4) Dyslipidemia: Code(s): E78.5 - Hyperlipidemia, unspecified Plan: Fasting lipid panel ordered . Continue with rosuvastatin 20 mg at bedtime , in addition to adherence to low-cholesterol diet and regular exercise, at least 30 minutes 3 to 4 times a week. Advised patient to make healthy food choices, eat more fruits, vegetables, whole grains, wild caught fish and low-fat dairy. Limit amount of meat and fried or fatty food products, as well as processed foods and fast foods. (5) Impaired fasting glucose: Code(s): R73.01 - Impaired fasting glucose Plan: Your fasting blood sugars elevated above 100 mg/dL. Impaired glucose metabolism O2 at risk for developing diabetes mellitus type 2, as well as heart attack and stroke later on. Lifestyle changes at just weight loss, healthy eating habits, and regular exercise are important, and can prevent the progression to diabetes (6) Essential hypertension: Code(s): I10 - Essential (primary) hypertension Plan: Blood pressure at goal of less than 130/80. Continue with metoprolol tartrate 50 mg 1 tablet twice a day and losartan 100 mg 1 daily as well as hydralazine 25 mg 1 tab twice. Reinforced importance of following a low sodium diet, getting regular exercise, and lowering stress levels. (7) Osteopenia of multiple sites: Code(s): M85.89 - Other specified disorders of bone density and structure, multiple sites Plan: Up-to-date with her bone density scan, recommend taking adequate calcium from dietary sources and take at least 2000 units of vitamin-D 3 daily and do regular weight-bearing exercise. Orders: Orders Alanine Aminotransferase 06/13/23 E78.5 - Hyperlipidemia, unspecified, I10 - Essential (primary) hypertension, I25.2 - Old myocardial infarction, M85.89 - Other specified disorders of bone density and structure, multiple sites, R73.01 - Impaired fasting glucose, Z78.0 - Asymptomatic menopausal state, Z86.73 - Personal history of transient ischemic attack (TIA), and cerebral infarction without residual deficits Aspartate Amino Transferase 06/13/23 E78.5 - Hyperlipidemia, unspecified, I10 - Essential (primary) hypertension, I25.2 - Old myocardial infarction, M85.89 - Other specified disorders of bone density and structure, multiple sites, R73.01 - Impaired fasting glucose, Z78.0 - Asymptomatic menopausal state, Z86.73 - Personal history of transient ischemic attack (TIA), and cerebral infarction without residual deficits Hemoglobin A1c 06/13/23 E78.5 - Hyperlipidemia, unspecified, I10 - Essential (primary) hypertension, I25.2 - Old myocardial infarction, M85.89 - Other specified disorders of bone density and structure, multiple sites, R73.01 - Impaired fasting glucose, Z78.0 - Asymptomatic menopausal state, Z86.73 - Personal history of transient ischemic attack (TIA), and cerebral infarction without residual deficits Glucose Fasting 06/13/23 E78.5 - Hyperlipidemia, unspecified, I10 - Essential (primary) hypertension, I25.2 - Old myocardial infarction, M85.89 - Other specified disorders of bone density and structure, multiple sites, R73.01 - Impaired fasting glucose, Z78.0 - Asymptomatic menopausal state, Z86.73 - Personal history of transient ischemic attack (TIA), and cerebral infarction without residual deficits Lipid Panel 06/13/23 E78.5 - Hyperlipidemia, unspecified, I10 - Essential (primary) hypertension, I25.2 - Old myocardial infarction, M85.89 - Other specified disorders of bone density and structure, multiple sites, R73.01 - Impaired fasting glucose, Z78.0 - Asymptomatic menopausal state, Z86.73 - Personal history of transient ischemic attack (TIA), and cerebral infarction without residual deficits Vitamin D 25-OH Total 06/13/23 E78.5 - Hyperlipidemia, unspecified, I10 - Essential (primary) hypertension, I25.2 - Old myocardial infarction, M85.89 - Other specified disorders of bone density and structure, multiple sites, R73.01 - Impaired fasting glucose, Z78.0 - Asymptomatic menopausal state, Z86.73 - Personal history of transient ischemic attack (TIA), and cerebral infarction without residual deficits Complete Blood Count Auto Diff 06/13/23 E78.5 - Hyperlipidemia, unspecified, I10 - Essential (primary) hypertension, I25.2 - Old myocardial infarction, M85.89 - Other specified disorders of bone density and structure, multiple sites, R73.01 - Impaired fasting glucose, Z78.0 - Asymptomatic menopausal state, Z86.73 - Personal history of transient ischemic attack (TIA), and cerebral infarction without residual deficits Creatine Kinase Total 06/13/23 M79.10 - Myalgia, unspecified site Medications: Changed From rosuvastatin 20 mg PO BEDTIME 90 tabs 1RF To rosuvastatin QOD 20 mg PO BEDTIME Coding Level of Care Code Est Pt Prev Care >65y(63783) Diagnoses Annual visit for general adult medical examination with abnormal findings Z00.01 Hx of non-ST elevation myocardial infarction (NSTEMI) I25.2 History of CVA (cerebrovascular accident) Z86.73 Dyslipidemia E78.5 Impaired fasting glucose R73.01 Essential hypertension I10 Osteopenia of multiple sites M85.89 Additional Codes VASU-7 Assessment Billing - VASU-7 Assessment Tool: VASU-7 Assessment [id number] ([id number])
[2023-06-10 11:04] VITALS: BP 130/60; PULSE 64; O2SAT 96; BMI 37.6
== END 2023-06-10 12:05 | disposition home or self-care (01) ==
PROVIDERS: Visit Provider Internal Medicine
DX: Z00.00 Encounter for general adult medical examination without abnormal findings (principal); I25.2 Old myocardial infarction; Z86.73 Personal history of transient ischemic attack (TIA), and cerebral infarction without residual deficits; E78.5 Hyperlipidemia, unspecified; R73.01 Impaired fasting glucose; I10 Essential (primary) hypertension; M85.89 Other specified disorders of bone density and structure, multiple sites
CPT/HCPCS: 99397

== ENCOUNTER 2023-06-13 12:06 | Outpatient (REF) | payer MEDICARE, SELFPAY ==
[2023-06-13 13:39] LABS: MANUAL DIFF FLAG NO
[2023-06-13 13:42] LABS: Basophils Percent Auto 0.7 % (0-2); Eosinophils Absolute Auto 0.1 X10*3/uL (0.0-0.4); Eosinophils Percent Auto 2.4 % (0-4); Hematocrit 37.9 % (37.0-47.0); Hemoglobin 12.7 g/dl (12.0-16.0); Imm Gran Abs Auto 0.02 X10*3/uL (0.00-0.03); Imm Gran Pct Auto 0.3 % (0.0-0.4); Lymphocytes Absolute Auto 1.9 X10*3/uL (1.2-4.9); Lymphocytes Percent Auto 33.6 % (20-40); Mean Corpuscular HGB Conc 33.5 g/dl (31.0-35.0); Mean Corpuscular Hemoglobin 31.1 pg (27.0-33.0); Mean Corpuscular Volume 92.7 fL (80.0-98.0); Mean Platelet Volume 11.8 fL (9.4-12.3); Monocytes Absolute Auto 0.5 X10*3/uL (0.1-1.2); Monocytes Percent Auto 9.2 % (2-11); Neutrophils Absolute Auto 3.1 x10*3/uL (2.0-8.3); Neutrophils Percent Auto 53.8 % (45-73); Platelet Count 160 X10*3/uL (160-400); Red Blood Count 4.09 X10*6/uL (4.20-5.50); Red Cell Distribution Width 12.1 % (11.0-16.0); White Blood Count 5.7 X10*3/uL (4.8-10.8)
[2023-06-13 13:48] LABS: Estimated Average Glucose 111 mg/dL; Hemoglobin A1c % 5.5 % (<6.0)
[2023-06-13 14:13] LABS: Alanine Aminotransferase 24 U/L (0-31); Anion Gap 14 (12-20); Aspartate Amino Transferase 21 U/L (5-31); Blood Urea Nitrogen 12 mg/dL (9-16); Calcium 8.9 mg/dL (8.4-10.2); Carbon Dioxide 26 mmol/L (22-29); Chloride 109 mmol/L (96-108); Cholesterol 144 mg/dL (<200); Estimated Glomerular Filt Rate > 60; Glucose Fasting 103 mg/dL (60-99); HDL Cholesterol 43 mg/dL (>40); LDL Cholesterol Calculated 66 mg/dL (<100); Potassium 4.5 mmol/L (3.3-5.1); Sodium 144 mmol/L (135-145); Triglycerides 177 mg/dL (<150)
[2023-06-13 14:28] LABS: Vitamin D 25-OH Total 39.9 ng/mL (>30)
== END 2023-06-13 12:07 | disposition home or self-care (01) ==
LOC: HO.HMGCLDS 12:06
PROVIDERS: PCP Internal Medicine; Visit Provider Internal Medicine
DX: Z00.01 Encounter for general adult medical examination with abnormal findings (principal); I25.2 Old myocardial infarction; E78.5 Hyperlipidemia, unspecified; R73.01 Impaired fasting glucose; I10 Essential (primary) hypertension; M85.89 Other specified disorders of bone density and structure, multiple sites; M79.10 Myalgia, unspecified site; Z86.2 Personal history of diseases of the blood and blood-forming organs and certain disorders involving the immune mechanism; Z86.73 Personal history of transient ischemic attack (TIA), and cerebral infarction without residual deficits; Z78.0 Asymptomatic menopausal state
CPT/HCPCS: 36415; 80048; 80061; 82306; 82550; 83036; 84450; 84460; 85025

== ENCOUNTER 2024-05-07 08:11 | Outpatient (REF) | payer MEDICARE, SELFPAY | END 2024-05-07 08:12 | disposition home or self-care (01) | LOC: HO.MAMMO 08:11 | PROVIDERS: PCP Internal Medicine; Visit Provider Internal Medicine | DX: Z12.31 Encounter for screening mammogram for malignant neoplasm of breast (principal) | CPT/HCPCS: 77063; 77067 ==

== ENCOUNTER → 2024-05-07 08:15 | Outpatient (BNV) | payer MEDICARE, SELFPAY | PROVIDERS: PCP Internal Medicine; Visit Provider Internal Medicine | DX: Z12.31 Encounter for screening mammogram for malignant neoplasm of breast (principal) | CPT/HCPCS: 77063; 77067 ==

== ENCOUNTER 2024-06-15 10:52 | Outpatient (AMB) | payer MEDICARE, SELFPAY ==
[2024-06-15 11:02] VITALS: BP 118/60; PULSE 66; RESP 16; TEMP 36.7; O2SAT 94; BMI 38.1
--- NOTE | 2024-06-15 11:02 | MHC.PC.OV ---
Vital Signs 06/15/24 11:02 Height 5 ft 6 in Weight 236 lb BMI 38.1 BP 118/60 Blood Pressure Location Rt brachial Position Sitting Respiration 16 Pulse 66 Pulse Source Pulse Oximeter Temp 98.0 F Temp Source Oral Pulse Oximetry (%) 94 Oxygen Delivery Method Room Air Intake Visit Reasons: PE Intake Note: Pt is here today for her PE: last mammogram 05/07/24, bone density scan 04/24/23, colonoscopy 06/03/19 Allergies No Known Allergies Allergy (Unknown, Verified 06/15/24 11:17) Medication List - Last Reconciled 06/15/24 by Katelyn Yap MD amlodipine 5 mg PO DAILY coenzyme Q10 (Co Q-10) 100 mg PO DAILY losartan 100 mg PO DAILY magnesium 250 mg PO BEDTIME metoprolol tartrate 50 mg PO BID multivitamin 1 tab PO DAILY [Raised toilet seat As directed] rosuvastatin 20 mg PO BEDTIME Tobacco use date assessed: 06/15/24 Fall risk assessment: 1 Fall in past year Last assessed Fall Risk: 06/15/24 Dental Screening Dental Screen Date: 06/15/24 Did you have a dental visit in the last 12 months?: No Did you have a dental problem in the last 6 months where you did not have access to dental care?: No Was dental information given to patient?: No HPI PE HPI Details 73-year-old lady here today for physical exam. She is up-to-date with her screening mammogram, done last 04/29/2024 with negative findings she had a bone density done in April of 2023 which showed presence of osteopenia in left femoral neck and left femur, normal in lumbar spine. She has no history of fractures last colonoscopy was done by Dr. Brar in 2019 with normal findings, repeat due again in 2029. Blood pressure stable and controlled on present treatment, but noted to have hypertriglyceridemia on last fasting lipid levels checked a year ago. Patient states that she has been compliant with a healthy diet and has been more active. She has history of normal pressure hydrocephalus and vestibular schwannoma, currently followed yearly by neurosurgeon, Dr. Lucio. Has history of non-STEMI with normal coronaries in 2018, attributed to stress cardiomyopathy, has obstructive sleep apnea compliant with her CPAP, currently followed regularly by Dr. Ferrera. [facility] Medical History Osteopenia of multiple sites Former heavy cigarette smoker (20-39 per day) Impaired fasting glucose History of anemia Normal pressure hydrocephalus Hypotension Vestibular schwannoma History of CVA (cerebrovascular accident) Stress-induced cardiomyopathy Hx of non-ST elevation myocardial infarction (NSTEMI) MARIA DE JESUS on CPAP Hx of transient ischemic attack (TIA) Osteoarthritis, hip, bilateral Dyslipidemia Essential hypertension Chronic pain of right groin Surgical History History of total right hip arthroplasty Hx of colonoscopy Hx of ovarian cystectomy Hx of breast surgery Hx of bilateral cataract extraction S/P LASIK surgery S/P INSTRUCTIONAL MEDIA SERVICES 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 Hx of cardiac catheterization Family History Father Substance use disorder Son Substance use disorder Paternal Aunt Mental health disorder Social History Household Members Other:: [facility] Housing: House Are you a primary childcare center administrator to a significant other at home: No Do you presently have visiting nurse or other home services: No Alcohol intake: current Alcohol intake frequency: holidays/special occasions only Alcohol type: hard liquor Patient Tobacco Use Status: Former Tobacco user Tobacco use type: Cigarette Cigarette Packs Per Day: 1 Years Smoked: 50 e-Cigarette/Vaping Use: Never Used service: No Current occupational status: retired Cognitive needs: No Hearing needs: No Vision needs: Yes Questionnaire PHQ-9 Over the last 2 weeks, how often have you been bothered by any of the following problems? 1. Little interest or pleasure in doing things: not at all 2. Feeling down, depressed, or hopeless: not at all 3. Trouble falling or staying asleep, or sleeping too much: several days 4. Feeling tired or having little energy: several days 5. Poor appetite or overeating: nearly every day 6. Feeling bad about yourself - or that you are a failure or have let yourself or your family down: not at all 7. Trouble concentrating on things, such as reading the newspaper or watching television: not at all 8. Moving or speaking so slowly that other people could have noticed. Or the opposite - being so fidgety or restless that you have been moving around a lot more than usual: not at all 9. Thoughts that you would be better off or of hurting yourself in some way: not at all Total score: 5 Depression Screening Interpretation: Negative Depression Screening Done: Yes 24670 - PHQ-9 Billing: Yes Source: Developed by Drs. Jeronimo Taylor, Aubree Joseph, Chencho Gaytan and colleagues, with an educational shikha from [employer]. Thrive Questionnaire Date Thrive assessed: 06/15/24 I am a: Patient What is your living situation today?: I have a steady place to live Within the past 12 months, did the food you bought not last and you didn't have the money to get more?: Never true Within the past 12 months, did you worry whether your food would run out before you got money to buy more?: Never true Do you have trouble paying for medicines?: No Do you have trouble getting transportation to medical appointments?: No Do you have trouble paying your heating and electricity bill?: No Do you have trouble taking care of your child, family member or friend?: No Do you have trouble with day-to-day activities such as bathing, preparing meals, shopping, managing finances, etc.?: No Are you currently unemployed and looking for a job?: No Are you interested in more education?: No Please select the resources that you would like help with: None Currently or been in a relationship where the following occur: No concerns reported THRIVE Score: 0 AUDIT C Alcohol Use Questionnaire (AUDIT-C) 1. How often do you have a drink containing alcohol?: Monthly or less 2. How many drinks containing alcohol do you have on a typical day when you are drinking?: 1 or 2 3. How often do you have six or more drinks on one occasion?: Less than monthly Total Score: 2 VASU-7 AMB Questionnaire VASU-7 Date VASU - 7 assessed: 06/15/24 Feeling nervous, anxious, or on edge: 0 = Not at all Not being able to stop or control worryin = Not at all Worrying too much about different things: 0 = Not at all Trouble relaxin = Not at all Being so restless that it is hard to sit still: 0 = Not at all Becoming easily annoyed or irritable: 0 = Not at all Feeling afraid as if something awful might happen: 0 = Not at all Total VASU-7 score (0-4 normal; 5-9 mild; 10-14 moderate; 15-21 severe): 0 Source: Developed by Drs. Jeronimo Taylor, Aubree Joseph, Chencho Gaytan and colleagues, with an educational shikha from [employer]. VASU-7 Assessment Billing VASU-7 Assessment Tool: VASU-7 Assessment 09385 Review of Systems Const Denies body aches, Denies fatigue, Denies fever(s), Denies headache(s) and Denies weakness Eyes Details: sees ophtha in [facility], Dr Davis Denies change in vision ENT Details: has dentures upper and lower Denies dizziness, Denies headache(s), Denies nasal congestion and Denies nasal discharge Card Denies chest pain, Denies lightheadedness, Denies palpitations and Denies dyspnea Resp Denies chest congestion, Denies cough, Denies dyspnea and Denies wheezing GI Denies abdominal pain, Denies change in bowel habits and Denies heartburn Denies hematuria, Denies urinary frequency, Denies dysuria and Denies urinary urgency Musc Reports no additional complaints Skin/Breast Denies breast pain, Denies breast mass, Denies lesions and Denies rash Neuro Denies dizziness, Denies headache(s) and Denies weakness Psych Reports no additional complaints Endo Denies fatigue, Denies polydipsia, Denies polyuria and Denies palpitations Shahzad/Lymph Denies easy bruising Aller/Immun Denies seasonal rhinorrhea and Denies wheezing Physical exam (Primary Care) Vital Signs: Last Vital Signs Temp 98.0 F 06/15/24 11:02 Pulse 66 06/15/24 11:02 Resp 16 06/15/24 11:02 BP 118/60 06/15/24 11:02 Pulse Ox 94 06/15/24 11:02 Oxygen Delivery Method Room Air 06/15/24 11:02 BMI result Body Mass Index 38.1 Tobacco/Smoking Status: Tobacco use Status Tobacco use date assessed 06/15/24 06/15/24 11:08 Patient Tobacco Use Status Former Tobacco user 06/15/24 11:08 Tobacco use type Cigarette 06/15/24 11:08 e-Cigarette/Vaping Use Never Used 06/15/24 11:08 PHQ-9: PHQ-9 Score PHQ-9: Total score 6 06/19/24 15:46 Depression Screening Interpretation: Negative Thrive Assessment: Date of Thrive Assessment Date Thrive assessed 06/15/24 06/15/24 11:08 Currently or been in a relationship where the following occur: No concerns reported Const General: cooperative, comfortable and no acute distress Nutritional Appearance: obese Orientation/consciousness: patient oriented x3 HENMT Head: Yes normocephalic Mouth: Normal oral and palatal mucosa present and moist mucous membranes Eyes General: appearance normal, both eyes and all related structures Neck Neck: Yes full ROM, Yes no lymphadenopathy and Yes supple Chest Breast/axilla palpation: normal palpation of the breasts Resp Effort & Inspection: normal respiratory effort and able to speak in complete sentences Auscultation: clear to auscultation bilaterally Cardio Rate: regular rate Rhythm: regular rhythm Heart sounds: S1 normal heart sound present and S2 normal heart sound present GI Palpation (GI): Soft to palpation, nontender, no guarding and no masses Auscultation: normal bowel sounds General: Yes no CVA tenderness Back/Spine/Pelvis Back: no CVA tenderness and No back tenderness Pelvis: no pain with anterior-posterior compression Skin General skin exam: no rashes or lesions noted Neuro General: patient oriented x3, gait normal, moves all extremities and no focal motor deficits Extrem General: Yes full ROM, Yes no joint enlargement and Yes no pedal edema Psych Appearance: grossly normal Mental Status: mental status grossly normal Speech and movement: Normal speech and movement present Affect: normal affect Attitude: cooperative Coding Level of Care Code Est Pt Prev Care >65y(53309) Diagnoses Annual visit for general adult medical examination with abnormal findings Z00.01 Essential hypertension I10 Dyslipidemia E78.5 Hx of non-ST elevation myocardial infarction (NSTEMI) I25.2 History of CVA (cerebrovascular accident) Z86.73 Impaired fasting glucose R73.01 Osteopenia of multiple sites M85.89 Additional Codes PHQ-9 - 48134 - PHQ-9 Billing: Yes ([id number]) VASU-7 Assessment Billing - VASU-7 Assessment Tool: VASU-7 Assessment 14523 ([id number]) Assessment & Plan Assessment & Plan (1) Annual visit for general adult medical examination with abnormal findings: Code(s): Z00.01 - Encounter for general adult medical examination with abnormal findings Plan: Fasting labs ordered. Recommended regular eye exams, at least every 2 years. Take adequate calcium in diet and vitamin-D 3 at 2000 IU per cap once a day, in addition to weight-bearing exercises to help maintain good muscle tone and weight control. Instructed to do self-breast exam, and continue to get yearly mammogram. Ordered bone density scan to be done this year. Up-to-date with her screening colonoscopy and vaccines (2) Essential hypertension: Code(s): I10 - Essential (primary) hypertension Category: Medical Plan: Will pressure controlled on amlodipine and losartan, continue with same dose (3) Dyslipidemia: Code(s): E78.5 - Hyperlipidemia, unspecified Category: Medical Plan: Fasting lipid panel ordered, currently on rosuvastatin 20 mg daily taken together with Co Q10 supplements (4) Hx of non-ST elevation myocardial infarction (NSTEMI): Comment: 2018 sees Shane Gillilandelio q 6 months at [facility] associates Code(s): I25.2 - Old myocardial infarction Category: Medical Plan: Restarted back on aspirin 81 mg once a day, continue metoprolol tartrate 50 mg 1 tablet twice a day, reinforced importance of getting blood pressure cholesterol levels well controlled (5) History of CVA (cerebrovascular accident): Code(s): Z86.73 - Personal history of transient ischemic attack (TIA), and cerebral infarction without residual deficits Category: Medical Plan: Restarted back on aspirin 81 mg daily (6) Impaired fasting glucose: Code(s): R73.01 - Impaired fasting glucose Category: Medical Plan: Your previous fasting blood sugars were elevated above 100 mg/dL. Impaired glucose metabolism increases the risk for developing diabetes mellitus type 2, as well as heart attack and stroke later on. Lifestyle changes that promotes weight loss, healthy eating habits, and regular exercise are important, and can prevent the progression to diabetes (7) Osteopenia of multiple sites: Code(s): M85.89 - Other specified disorders of bone density and structure, multiple sites Category: Medical Plan: Repeat bone density scan ordered, to be scheduled together with screening mammogram this year. Continue with weight-bearing exercises, taking adequate calcium from dietary sources andtaking vitamin-D 3 supplements at least 2000 units daily Orders: Orders Lipid Panel 06/16/24 E78.5 - Hyperlipidemia, unspecified, I10 - Essential (primary) hypertension, I25.2 - Old myocardial infarction, M85.89 - Other specified disorders of bone density and structure, multiple sites, R73.01 - Impaired fasting glucose, Z00.01 - Encounter for general adult medical examination with abnormal findings, Z86.73 - Personal history of transient ischemic attack (TIA), and cerebral infarction without residual deficits Aspartate Amino Transferase 06/16/24 E78.5 - Hyperlipidemia, unspecified, I10 - Essential (primary) hypertension, I25.2 - Old myocardial infarction, M85.89 - Other specified disorders of bone density and structure, multiple sites, R73.01 - Impaired fasting glucose, Z00.01 - Encounter for general adult medical examination with abnormal findings, Z86.73 - Personal history of transient ischemic attack (TIA), and cerebral infarction without residual deficits Alanine Aminotransferase 06/16/24 E78.5 - Hyperlipidemia, unspecified, I10 - Essential (primary) hypertension, I25.2 - Old myocardial infarction, M85.89 - Other specified disorders of bone density and structure, multiple sites, R73.01 - Impaired fasting glucose, Z00.01 - Encounter for general adult medical examination with abnormal findings, Z86.73 - Personal history of transient ischemic attack (TIA), and cerebral infarction without residual deficits Basic Metabolic Panel Fasting 06/16/24 E78.5 - Hyperlipidemia, unspecified, I10 - Essential (primary) hypertension, I25.2 - Old myocardial infarction, M85.89 - Other specified disorders of bone density and structure, multiple sites, R73.01 - Impaired fasting glucose, Z00.01 - Encounter for general adult medical examination with abnormal findings, Z86.73 - Personal history of transient ischemic attack (TIA), and cerebral infarction without residual deficits Vitamin D 25-OH Total 06/16/24 E78.5 - Hyperlipidemia, unspecified, I10 - Essential (primary) hypertension, I25.2 - Old myocardial infarction, M85.89 - Other specified disorders of bone density and structure, multiple sites, R73.01 - Impaired fasting glucose, Z00.01 - Encounter for general adult medical examination with abnormal findings, Z86.73 - Personal history of transient ischemic attack (TIA), and cerebral infarction without residual deficits Hemoglobin A1c 06/16/24 E78.5 - Hyperlipidemia, unspecified, I10 - Essential (primary) hypertension, I25.2 - Old myocardial infarction, M85.89 - Other specified disorders of bone density and structure, multiple sites, R73.01 - Impaired fasting glucose, Z00.01 - Encounter for general adult medical examination with abnormal findings, Z86.73 - Personal history of transient ischemic attack (TIA), and cerebral infarction without residual deficits XR DEXA axial skeleton 05/09/25 M85.89 - Other specified disorders of bone density and structure, multiple sites Medications: Refilled rosuvastatin QOD 20 mg PO BEDTIME 90 tabs 4RF
--- OUTSIDE RECORDS SUMMARY | 2024-06-15 12:07 | XMS_ITS | Clinical Summary ---
Author Organization [facility] Address [address] [place] [address] Care Team Providers Care Body Work Auto Trimmer Name Role Phone Katelyn Yap MD Primary Care Provider [phone] Surgical History Surgery Date Site/Laterality Comments OTHER SURGICAL HISTORY 07/06/2017 PROCEDURE: MD CRTJ SHUNT [id number] TERMINUS; COMMENT: Right SURGERY CENTER ADMINISTRATOR shunt with strata valve, Dr. Sharpe KNEE SURGERY PROCEDURE: HISTORICAL KNEE SURGERY Medical History Medical History Date Comments History of VA (myocardial infarction) 2018 DX:History of VA (myocardial infarction); COMMENT: broken heart syndrome Vestibular schwannoma (CMS/HCC) 2017 DX:Vestibular schwannoma (HCC); COMMENT: left, followed by Dr. Mcgregor, s/p SRS tx 2019 NPH (normal pressure hydroce phalus) (CMS/HCC) 06/2017 DX:NPH (normal pressure hydr ocephalus) (HCC) Essential (primary) hypertension DX:Essential (primary) hypertension OA (osteoarthritis) of hip DX:OA (osteoarthritis) of hip; COMMENT: Planning for right hip replacement Social History Tobacco Use Types Packs/Day Years Used Date Smoking Tobacco: Never Smokeless Tobacco: Never Sex and Gender Information Value Date Recorded Sex Assigned at Not on file Gender Identity Not on file Sexual Orientation Not on file Obstetrics History Last Filed Vital Signs Vital Sign Reading Time Taken Comments Blood Pressure - - Pulse - - Temperature - - Respiratory Rate - - Oxygen Saturation - - Inhaled Oxygen Concentration - - Weight 95.3 kg (210 lb) 10/09/2021 2:42 PM EDT Height 167.6 cm (5' 6 ) 10/09/2021 2:42 PM EDT Body Mass Index 33.89 10/09/2021 2:42 PM EDT Plan of Treatment Health Maintenance Due Date Last Done Comments Breast Cancer Screening 1950 Pneumococcal Vaccine: 65+ Years (2 of 2 - PCV) 2017 01/10/2013 Cholesterol Screening (Lipid Panel) 04/08/2022 Colorectal Cancer Screening: Colonoscopy 04/08/2022 Depression Screening 04/08/2022 Falls Risk Assessment 04/08/2022 Hepatitis C Screening 04/08/2022 Osteoporosis Screening (Bone Density Screening) 04/08/2022 Social Influencers of Health Screening 04/08/2022 DTaP,Tdap,and Td Vaccines (2 - Td or Tdap) 01/10/2023 01/10/2013 COVID-19 Vaccine ( - season) 2024 08/12/2021, 03/27/2021, 08/23/2020, Additional history exists Influenza Vaccine (#1) 2024 , 03/06/2020, 03/02/2018, Additional history exists Hypertension/CHF/CAD Annual BMP Blood Test 02/22/2024 RSV Immunization Patients 60+ Years Old (1 - 1-dose 75+ series) 12/03/2027 Zoster Vaccines Completed 12/20/2017, 08/09, 01/10/2013 HIB Vaccines Aged Out No longer eligi ble based on patient's age to complete this topic HPV Vaccines Aged Out No longer eligi ble based on patient's age to complete this topic Hepatitis A Vaccines Aged Out No long er eligible based on patient's age to complete this topic Hepatitis B Vaccines Aged Out No long er eligible based on patient's age to complete this topic IPV Vaccines Aged Out No longer eligi ble based on patient's age to complete this topic MMR Vaccines Aged Out No longer eligi ble based on patient's age to complete this topic Meningococcal ACWY Vaccine Aged Out N o longer eligible based on patient's age to complete this topic RSV Immunization Patients Under 20 months Aged Out No longer eligible based on patient's age to complete this topic Varicella Vaccines Aged Out No longer eligible based on patient's age to complete this topic Care Teams Body Work Auto Trimmer Relationship Specialty Start Date End Date Katelyn Yap MD [address] [place] [address] PCP - General Internal Medicine 10/09/21
== END 2024-06-15 11:41 | disposition home or self-care (01) ==
PROVIDERS: PCP Internal Medicine; Visit Provider Internal Medicine
DX: Z00.01 Encounter for general adult medical examination with abnormal findings (principal); I10 Essential (primary) hypertension; E78.5 Hyperlipidemia, unspecified; I25.2 Old myocardial infarction; Z86.73 Personal history of transient ischemic attack (TIA), and cerebral infarction without residual deficits; R73.01 Impaired fasting glucose; M85.89 Other specified disorders of bone density and structure, multiple sites

== ENCOUNTER → 2024-06-15 10:52 | Outpatient (BNVA) | payer MEDICARE, SELFPAY | PROVIDERS: PCP Internal Medicine; Visit Provider Internal Medicine | DX: Z00.01 Encounter for general adult medical examination with abnormal findings (principal); I10 Essential (primary) hypertension; E78.5 Hyperlipidemia, unspecified; I25.2 Old myocardial infarction; R73.01 Impaired fasting glucose; M85.89 Other specified disorders of bone density and structure, multiple sites; Z86.73 Personal history of transient ischemic attack (TIA), and cerebral infarction without residual deficits | CPT/HCPCS: 96127; 99397 ==

== ENCOUNTER 2024-06-16 07:16 | Outpatient (REF) | payer MEDICARE, SELFPAY ==
[2024-06-16 10:23] LABS: Alanine Aminotransferase 33 U/L (0-31); Anion Gap 8 (12-20); Aspartate Amino Transferase 29 U/L (5-31); Blood Urea Nitrogen 18 mg/dL (9-16); Calcium 8.9 mg/dL (8.4-10.2); Carbon Dioxide 26 mmol/L (22-29); Chloride 110 mmol/L (96-108); Cholesterol 159 mg/dL (<200); Estimated Glomerular Filt Rate > 60; Glucose Fasting 114 mg/dL (60-99); HDL Cholesterol 42 mg/dL (>40); LDL Cholesterol Calculated 92 mg/dL (<100); Potassium 4.4 mmol/L (3.3-5.1); Sodium 140 mmol/L (135-145); Triglycerides 127 mg/dL (<150)
[2024-06-16 11:16] LABS: Estimated Average Glucose 114 mg/dL; Hemoglobin A1C 120.1847 umol/L; Hemoglobin A1c % 5.6 % (<6.0)
== END 2024-06-16 07:17 | disposition home or self-care (01) ==
LOC: HO.HMGCLDS 07:16
PROVIDERS: PCP Internal Medicine; Visit Provider Internal Medicine
DX: Z00.01 Encounter for general adult medical examination with abnormal findings (principal); M85.89 Other specified disorders of bone density and structure, multiple sites; I25.2 Old myocardial infarction; Z86.73 Personal history of transient ischemic attack (TIA), and cerebral infarction without residual deficits; R73.01 Impaired fasting glucose; E78.5 Hyperlipidemia, unspecified; I10 Essential (primary) hypertension
CPT/HCPCS: 36415; 80048; 80061; 82306; 83036; 84450; 84460

== ENCOUNTER 2025-04-14 09:53 | Outpatient (REF) | payer MEDICARE, SELFPAY ==
[2025-04-14 14:08] LABS: Cholesterol 150 mg/dL (<200); HDL Cholesterol 43 mg/dL (>40); Triglycerides 159 mg/dL (<150)
== END 2025-04-14 09:54 | disposition home or self-care (01) ==
LOC: HO.HMGCLDS 09:53
PROVIDERS: PCP Internal Medicine; Visit Provider Physician Assistant
DX: E78.5 Hyperlipidemia, unspecified (principal)
CPT/HCPCS: 36415; 80061

== ENCOUNTER 2025-05-09 12:42 | Outpatient (REF) | payer MEDICARE, SELFPAY ==
--- NOTE | ~2025-05-09 | MM_ITS ---
EXAMINATION: MM SCREENING DIGITAL BREAST TOMOSYNTHESIS, BILATERAL CLINICAL INFORMATION: Screening. Asymptomatic. COMPARISON: Mammography: Comparison is made with available priors TECHNIQUE: Digital breast mammography with tomosynthesis is performed in both the craniocaudal and mediolateral oblique views along with computer-aided detection (CAD). FINDINGS: There are scattered areas of fibroglandular density. VINEYARDIST shunt tubing overlies the posterior medial right breast. There are no significant masses, abnormal calcifications, or other abnormalities. MM/MM tomosynthesis screening BI IMPRESSION: No mammographic evidence of malignancy. ASSESSMENT: BI-RADS Category 2: Benign RECOMMENDATION: Routine annual mammography screening. 1 year F/U This examination should not preclude the clinical evaluation of a suspicious palpable abnormality. This patient's information was entered into a reminder system with a target due date for their next mammogram. Electronically signed by: Barbie Christopher DO 05/10/2025 01:16 PM [facility]
--- OUTSIDE RECORDS SUMMARY | 2025-05-09 16:35 | XMS_ITS | Patient Health Record ---
Author Organization [facility] Address [address] [place] [address] Care Team Providers Care Reprographics Technician Name Role Phone Glen (RETIRED) Estiven PHAM Primary Care Provider Unavailable Rene Brar Jr Unavailable Reason For Referral No Information Medications Medication SIG (Take, Route, Frequency, Duration) Notes Start Date End Date Status CoQ10 100 MG Capsule 1 capsule with a me al Orally Once a day; Duration: 30 day(s) Active Losartan Potassium 100 MG Tablet 1 tablet Orally Once a day Active MiraLax (colon prep) 8.3 ounce ((238) grams mixed with Gatorade or Crystal Light orally begin at 5:00 p.m. the day before the procedure; Duration: 1 day 03/23/2019 Active Metoprolol Tartrate 50 MG Tablet 1 tablet with food Orally Twice a day; Duration: 30 day(s) Active Magnesium 250 MG Tablet 1 tablet with a meal Orally Once a day; Duration: 30 day(s) Active Aspirin 81 MG Tablet Chewable 1 tablet Orally Once a day Active Rosuvastatin Calcium 20 MG Tablet 1 tablet Orally Once a day Active Immunizations Vaccine Route Administration Date Status Comme nts Influenza Unknown 02/16/2019 Administered Social History Tobacco Use: Social History Observation Description Date Details (start date - stop date) Former Smoker NA - NA Social History Tobacco Use: Social Info Question Answer Notes Tobacco Use/Smoking Patient is a former smoker How long has it been since you last smoked? > 10 years Additional Details Category Social Info Options Details Miscellaneous: Marital status: Occupation: retired Problems Problem Type SNOMED Code ICD Code Onset Dates Problem Status W/U Status Risk Notes Problem Colon cancer screening (991160940) Colon cancer screening (Z12.11) Active confirmed Problem Long-term current use of antiplatelet drug ([id number]) continuous churn buttermaker (current) use of aspirin (Z79.82) Active confirmed Problem Gastroesophageal reflux disease without esophagitis (155013588) Gastroesophageal reflux disease without esophagitis (K21.9) Active confirmed Plan Of Treatment Future Test Test Name Order Date UPPER GI ENDOSCOPY 08/23/2014 COLONOSCOPY 03/23/2019 Insurance Providers Payer Name Payer Address Payer Phone Subscriber Number Group Number Insured Name Patient Relationship to Insured Coverage Start Date Coverage End Date [facility] [address] [facility] [place] [phone] [id number] LADARIUS BRASHER Self - patient is the insured Medical (General) History Medical History History ICD Code 2009, Colonoscopy, hyperpastic polyps Elevated cholesterol Hypertension Benign breasts cysts NPH sleep apnea [place] 2018 brain lesion Surgical History Surgery Date(Month/Year) Oophorectomy knee surgery Billateral breast cyst removal laser surgery in both eyes shunt programmable
--- OUTSIDE RECORDS SUMMARY | 2025-05-09 16:35 | XMS_ITS | Clinical Summary ---
Author Organization [facility] Address [address] [place] [address] Care Team Providers Care Community Service Aide Name Role Phone Katelyn Yap MD Primary Care Provider [phone] Surgical History Surgery Date Site/Laterality Comments OTHER SURGICAL HISTORY 07/06/2017 PROCEDURE: ND CRTJ SHUNT [id number] TERMINUS; COMMENT: Right PEANUT VENDOR shunt with strata valve, Dr. Sharpe KNEE SURGERY PROCEDURE: HISTORICAL KNEE SURGERY Medical History Medical History Date Comments History of MS (myocardial infarction) 2018 DX:History of MS (myocardial infarction); COMMENT: broken heart syndrome Vestibular schwannoma (CMS/H CC V24, CMS/HCC V28) 2017 DX:Vestibular schwannoma (HC C); COMMENT: left, followed by Dr. Mcgregor, s/p SRS tx 2019 NPH (normal pressure hydroce phalus) (CMS/HCC V24, CMS/HCC V28) 06/2017 DX:NPH (normal pressure hyd rocephalus) ([facility]) Essential (primary) hypertension DX:Essential (primary) hypertension OA (osteoarthritis) of hip DX:OA (osteoarthritis) of hip; COMMENT: Planning for right hip replacement Social History Tobacco Use Types Packs/Day Years Used Date Smoking Tobacco: Never Smokeless Tobacco: Never Comments Unknown Sex and Gender Information Value Date Recorded Sex Assigned at Not on file Legal Sex Female 1:02 PM EST Gender Identity Not on file Sexual Orientation Not on file Last Filed Vital Signs Vital Sign Reading [...] Last Done Comments Breast Cancer Screening 1950 Colorectal Cancer Screening: Colonoscopy 1950 Pneumococcal Vaccine: 50+ Years (2 of 2 - PCV) 01/10/2014 01/10/2013 Cholesterol Screening (Lipid Panel) 04/08/2022 Falls Risk Assessment 04/08/2022 Hepatitis C Screening 04/08/2022 Osteoporosis Screening (Bone Density Screening) 04/08/2022 Social Influencers of Health Screening 04/08/2022 DTaP,Tdap,and Td Vaccines (2 - Td or Tdap) 01/10/2023 01/10/2013 Hypertension/CHF/CAD Annual BMP Blood Test 02/22/2024 Depression Screening 05/11/2024 COVID-19 Vaccine ( season) 2025 08/12/2021, 03/27/2021, 08/23/2020, Additional history exists Influenza Vaccine (#1) 2025 , 03/06/2020, 03/02/2018, Additional history exists RSV Immunization Adult Patients (1 - 1-dose 75+ series) 12/03/2027 Zoster [...] patient's age to complete this topic Meningococcal B Vaccine Aged Out No l onger eligible based on patient's age to complete this topic RSV Immunization Patients Under 20 months Aged Out No longer eligible based on patient's age to complete this topic Varicella Vaccines Aged Out No longer eligible based on patient's age to complete this topic Care Teams Community Service Aide Relationship Specialty Start Date End Date Katelyn Yap MD [address] [place] [address] PCP - General Internal Medicine 10/09/21
== END 2025-05-09 12:43 ==
LOC: HO.MAMMO 12:42
PROVIDERS: PCP Internal Medicine; Visit Provider Internal Medicine
DX: Z12.31 Encounter for screening mammogram for malignant neoplasm of breast (principal)
CPT/HCPCS: 77063; 77067

== ENCOUNTER → 2025-05-09 13:00 | Outpatient (BNV) | payer MEDICARE, SELFPAY | PROVIDERS: PCP Internal Medicine; Visit Provider Internal Medicine | DX: Z12.31 Encounter for screening mammogram for malignant neoplasm of breast (principal) | CPT/HCPCS: 77063; 77067 ==